=== PATIENT | male | born 1945 | race Caucasian/White ===

== ENCOUNTER 2017-10-08 11:52 | Inpatient (IN) | payer MEDICARE, OTHER, SELFPAY ==
[2017-10-08] VITALS (12 sets, daily range): BP systolic 113–149; BP diastolic 47–62; PULSE 56–75; RESP 14–24; TEMP 36.6–36.8; O2SAT 92–97; BMI 26.4; BMI 25.7; BMI 25.8
--- NOTE | 2017-10-08 12:07 | RAD_ITS ---
STUDY: X-RAY CHEST REASON FOR EXAM: Male, 72 years old. Chest pain x2 days. TECHNIQUE: Single portable frontal chest. COMPARISON: 2 views of the chest dated July 17, 2015. FINDINGS: The lungs are clear and expanded. There is no pleural effusion. There is no pneumothorax. Normal size heart. Calcified hilar and mediastinal lymph nodes appear stable. Normal visualized pulmonary arteries. There is atherosclerotic calcification of the aortic arch with tortuosity. There are diffuse degenerative changes of the visualized thoracic spine. Normal visualized ribs, clavicles, and shoulders. There is no demonstrated abnormality of the visualized soft tissue structures of the upper abdomen. RAD/Chest 1 View (Portable) IMPRESSION: Stable exam without evident acute cardiopulmonary disease. Electronically Signed: Yayo Munoz MD at 13:31 EDT , Service support ,
--- NOTE | 2017-10-08 12:07 | EKG12_ITS ---
Test Reason : AM Blood Pressure : / mmHG Vent. Rate : 067 BPM Atrial Rate : 067 BPM P-R Int : 164 ms QRS Dur : 138 ms QT Int : 416 ms P-R-T Axes : 054 023 029 degrees QTc Int : 439 ms Sinus rhythm with occasional Premature ventricular complexes Right bundle branch block Abnormal ECG When compared with ECG of 08-OCT-2017 11:52, MANUAL COMPARISON REQUIRED, DATA IS UNCONFIRMED Confirmed by AILEEN UP, SONAL ([id number]), index editor SOILA STREETER ([id number]) on 10/10/2017 1:21:49 PM Referred By: SALOME Confirmed By:SONAL GALLAGHER MD
[2017-10-08 12:22] LABS: Absolute Lymphocyte Count 2.17 X10^3/ul (0.83-4.51); Absolute Neutrophil Count 3.1 X10^3/uL (2.0-7.7); Basophil# 0.03 X10^3/uL; Basophil% 0.5 % (0-1); Eosinophil# 0.15 X10^3/uL; Eosinophils% 2.5 % (0-5); Hematocrit 44.6 % (40-54); Hemoglobin 15.1 g/dl (13.0-16.5); Lymphocyte # 2.17 X10^3/ul (4.0); Mean Corp Hgb Conc 33.9 g/gl (32-36); Mean Corpuscular Volume 91.6 fL (80-94); Mean Platelet Vol. 9.7 fl (6.2-12.0); Monocyte# 0.58 X10^3/uL; Monocyte% 9.6 % (0-10); Neutrophil # 3.09 X10^3/uL (2.7-7.7); Neutrophil % 51.2 % (47-70); POSITIVE COUNT NO; POSITIVE DIFFERENTIAL NO; POSITIVE MORPHOLOGY NO; Platelet Count 217 K/mm3 (150-450); RBC Distribution Width CV 12.6 % (11.6-14.6); RBC Distribution Width SD 41.5 fl (35.1-43.9); Red Blood Count 4.87 M/mm3 (4.6-6.2)
[2017-10-08] MEDS: 0.9% Normal Saline 1,000 ML 150 ML IV (12:33)
[2017-10-08] MEDS: Aspirin 81 MG TAB.CHEW 324 MG PO (12:33)
[2017-10-08 12:40] LABS: Anion Gap 6 (5-15); BUN 16 mg/dL (7-18); BUN/Creat Ratio 15.8 RATIO (10-20); Calcium,Total 9.3 mg/dL (8.5-10.1); Chloride 101 mmol/L (98-107); Creatinine, Serum 1.01 mg/dL (0.70-1.30); EST Glomerular Filtration Rate 77 mL/min (>60); Est Glom Filt Rate - Afr Amer 93 mL/min (>60); Estimated Creatinine Clearance 64.17 ml/min; Glucose 109 mg/dL (74-106); Sodium Level 139 mmol/L (136-145)
--- NOTE | 2017-10-08 12:47 | ED.VISSUMM ---
- ER Visit Summary Date of Service: 10/08/17 Chief Complaint: Chest pain] History of Present Illness: The patient is a 72 M [presents the emergency department with chest pain ?2 weeks. Patient describes a pressure and tightness in the retrosternal area especially with activity. Patient states that he has been walking daily with his and typically the discomfort is brought on by activity and seems to resolve with rest. Patient does describe some dyspnea. Patient describes some discomfort in the both arms. Patient thinks his last stress test was a few years ago. Patient has a history of hypertension, high cholesterol, asthma, Venecia's thyroiditis. Patient denies recent travel or surgery] Physical Examination: HEENT-PERRLA, EOMI. Cranial nerves II through XII grossly intact. TMs clear. Mucous membranes moist. No adenopathy. Cardiovascular-regular rate and rhythm without murmur or ectopy Lungs-clear to auscultation, chest wall stable without crepitus or subcu emphysema Abdomen-normoactive bowel sounds, soft, nontender, no rebound or rigidity, no peritoneal signs. Extremities-intact ?4, normal range of motion, normal pulses, atraumatic] Test Results: [EKG obtained arrival shows sinus rhythm with rate of 72 bpm with right bundle branch block. CBC with it was normal. Chemistries were normal. Troponin was less than 0.02. Chest x-ray showed nothing acute.] Emergency Department Course and Treatment: [Received aspirin in the emergency department. Discussed case with Dr. Sebastien Stallings who is on-call for cardiology who asked that we admit to hospitalist for cardiac rule out including stress test] Treatment Plan: [Admit] Disposition: [Admit] Impression: [Chest pain-rule out acute coronary syndrome] This note was generated with [employer] dictation software. It may contain incorrect words, spelling, and punctuation that were not noted in review of the chart prior to signing ED Disposition - Plan for ED Patient: Chief Complaint: Chest Pain Referrals: Álvaro Purcell DO [Primary Care Provider] -
--- NOTE | 2017-10-08 13:01 | PCM.HP.STD ---
Problem List (1) HTN (hypertension) Status: Chronic Qualifiers: Hypertension type: essential hypertension Qualified Code(s): I10 - Essential (primary) hypertension (2) HLD (hyperlipidemia) Status: Chronic Qualifiers: Hyperlipidemia type: unspecified Qualified Code(s): E78.5 - Hyperlipidemia, unspecified (3) Asthma Status: Chronic Qualifiers: Asthma severity: mild Asthma persistence: unspecified Asthma complication type: uncomplicated Qualified Code(s): J45.909 - Unspecified asthma, uncomplicated (4) History of Venecia thyroiditis Status: Chronic (5) Allergic rhinitis Status: Chronic Qualifiers: Allergic rhinitis trigger: unspecified Allergic rhinitis seasonality: unspecified seasonality Qualified Code(s): J30.9 - Allergic rhinitis, unspecified (6) Chest pain Status: Acute Qualifiers: Chest pain type: unspecified Qualified Code(s): R07.9 - Chest pain, unspecified (7) Dyspnea on exertion Status: Acute History of Present Illness Date of Admission: 10/08/17 Chief Complaint: Chest pain The patient is a 72 y/o M w/ PMHx: HTN, HLD, Asthma, Hx of Venecia Thyroiditis who presents to the [facility] ED on 10/08/17 with history of intermittent substernal chest pressure and tightness with associated dyspnea with radiation to bilateral upper extremities primarily with activity with onset starting approximately 2 weeks prior. He normally walks at least 1 mile daily with his and notes that this started intermittently when he was exerting himself. He also notes the day prior to current presentation he was digging a ditch and it reoccurred. This sensation has become more severe but remains intermittent. In the ED work-up included AF, HR 60-70, BP 125/59, RR 19, 94% on RA, unremarkable CBC, unremarkable BMP aside glucose 109, trop < 0.02, CXR without acute process, EKG w/ chronic unchanged RBBB. In the ED patient administered NS, ASA. Cardiology, Dr. Stallings consulted per ED physician. Past Medical History Past Medical History (Chronic Problems): Chronic Problems HTN (hypertension) (Chronic) HLD (hyperlipidemia) (Chronic) Asthma (Chronic) History of Venecia thyroiditis (Chronic) Allergic rhinitis (Chronic) Allergies latex Allergy (Verified 10/08/17 12:06) Hives codeine Adverse Reaction (Verified 10/08/17 12:06) Nausea Home Medications: Ambulatory Orders Medication Instructions Recorded Albuterol Inhaler [Ventolin Hfa 1 - 2 puff INHALATION Q6H PRN PRN 10/08/17 (SP)] Budesonide Inhaler 90 mcg 2 puff INHALATION BID PRN 10/08/17 [Pulmicort Flexhaler 90 mcg] Cholecalciferol (Vitamin D3) 4,000 unit PO DAILY 10/08/17 [Vitamin D3] Fexofenadine HCl 180 mg PO DAILY 10/08/17 Fish Oil/Dha/Epa [Fish Oil 1,200 1 each PO DAILY 10/08/17 mg Fish Oil] Gluc/Evans-MSM#1/C/Abrahan/Gabe/Bor 1 each PO DAILY 10/08/17 [Glucosamine-Chondroitin Caplet] Hydrochlorothiazide 25 mg PO DAILY 10/08/17 Levothyroxine [Synthroid] 137 mcg PO DAILY 10/08/17 Nabumetone [Relafen] 500 mg PO DAILY 10/08/17 Triamterene/Hydrochlorothiazid 1 each PO DAILY 10/08/17 [Triamterene-Hctz 37.5-25 mg Tb] Surgical History: - - Bilateral inguinal hernia repair and arthroscopic knee surgery. Psychiatric History: No pertinent psych hx Lives: Spouse/ Significant Other Smoking Status: Former smoker - Quit approximately 25 years prior with a [id number] history of cigarette tobacco. Tobacco Use: Non-smoker Alcohol: Occasional Drugs: None - *Family History Maternal History Items: - - Mother with a history of heart disease, ND, stroke noted to have had a initial event in her 70s. Paternal History Items: - - Father with a history of heart disease, ND, stroke with initial event at age 65. Sibling History Items: - - Patient sister with a history of ND, heart disease with initial event at age 65. Review of Systems Constitutional: Denies: Chills, Fever, Weight Change HEENT: Denies: Head Aches, Sinus Congestion, Sinus Drainage Cardiovascular: Reports: Chest Pain, Chest Pressure, Chest Tightness. Denies: Edema, Heaviness, Light Headedness, Orthopnea, Palpitations, Syncope Respiratory: Reports: Shortness of Breath, Shortness of breath upon exertion. Denies: Cough, Shortness of breath at rest, Sputum production Gastrointestinal: Denies: Abdominal Pain, Nausea, Vomiting Genitourinary: Denies: Dysuria Musculoskeletal: Denies: Joint Pain, Joint Tenderness Skin: Denies: Rash, Wounds Neurological: Denies: Numbness, Tingling, Focal weakness Psychiatric: Denies: Anxiety, Depression, Homicidal Ideations, Suicidal Ideations Hematologic/ Lymphatic: Denies: Easy Bruising, Easy Bleeding VTE Information - Inpt Only VTE Present on Admission: No VTE Mechan Device Prophylaxis: SCD's VTE Pharm Prophylaxis ordered?: Yes Patient Problems: Active and Suspected Problems Chest pain (Acute) Dyspnea on exertion (Acute) Hypercholesterolemia (Acute) Subjective: Seated upright in the bed, no acute distress, no current chest discomfort. Objective: Physical Examination: General: awake, alert, oriented x 3 and cooperative, seated upright in bed in no apparent distress. Skin: normal color, turgor, no icterus, cyanosis. HEENT: AT/NC, EOMI, PERRLA, MMM, no carotid bruits or JVD noted. Lungs: Diminished breath sounds throughout, greater bilateral bases, mild effort, no rales, ronchi or wheezing. Heart: Regular rate and rhythm; no gallop, rub audible. Abdomen: soft, NTTP, ND, normal BS, no HSM. Extremities: no cyanosis, clubbing, or edema. Neurological: patient awake, alert, oriented x 3; cognitive function intact; pupils equally reactive to light and accomodation; cranial nerves II-XII grossly normal, moving all 4 extremities, no focal deficits, strength preserved. Psychiatric: affect appears normal, no acute evidence of depressive or anxiety feelings. - Physical Exam Vital Signs Temp Pulse Resp BP Pulse Ox 97.9 F 75 19 H 125/59 H 94 10/08/17 11:53 10/08/17 12:41 10/08/17 12:41 10/08/17 12:41 10/08/17 12:41 Oxygen Delivery Method Room Air Weight: 179 lb 7.3 oz Body Mass Index (BMI) 26.4 Laboratory Tests Past 24 Hrs 10/08/17 10/08/17 12:10 12:10 WBC 6.0 RBC 4.87 Hgb 15.1 Hct 44.6 MCV 91.6 MCH 31.0 MCHC 33.9 RDW 12.6 RDW Differential 41.5 Plt Count 217 MPV 9.7 Immature Gran % (Auto) 0.200 Neut % (Auto) 51.2 Lymph % (Auto) 36.0 [place] % (Auto) 9.6 Eos % (Auto) 2.5 Baso % (Auto) 0.5 Absolute Neuts (auto) 3.1 Absolute Lymphs (auto) 2.17 Total Counted Not Reportable Sodium 139 Potassium 4.0 Chloride 101 Carbon Dioxide 32.0 Anion Gap 6 BUN 16 Creatinine 1.01 Estim Creat Clear Calc 64.17 Est GFR (MDRD) Af Amer 93 Est GFR (MDRD) Non-Af 77 BUN/Creatinine Ratio 15.8 Glucose 109 H Calcium 9.3 Troponin I < 0.02 Assessment/Plan Active and Suspected Problems Chest pain (Acute) Dyspnea on exertion (Acute) Hypercholesterolemia (Acute) The patient is a 72 y/o M w/ PMHx: HTN, HLD, Asthma, Hx of Venecia Thyroiditis who presents to the [facility] ED on 10/08/17 with history of intermittent substernal chest pressure and tightness with associated dyspnea with radiation to bilateral upper extremities primarily with activity with onset starting approximately 2 weeks prior. He normally walks at least 1 mile daily with his and notes that this started intermittently when he was exerting himself. (1) Chest Pain: In the ED work-up included AF, HR 60-70, BP 125/59, RR 19, 94% on RA, unremarkable CBC, unremarkable BMP aside glucose 109, trop < 0.02, CXR without acute process, EKG w/ chronic unchanged RBBB. In the ED patient administered NS, ASA. Cardiology, Dr. Stallings consulted per ED physician. Will admit to PCU, place on a monitored bed to assure no acute myocardial infarction with serial cardiac enzymes and EKGs. Per Dr. Stallings request will obtain ECHO w. contrast. Additionally, if cardiac enzyme series remain unremarkable will obtain AM Treadmill Stress ECHO. ASA, NG, morphine. FLP in AM. Mag pending. (2) Asthma, Mild: PRN albuterol, HOB, IS parameters. (3) Hypertension: Continue home regimen including triamterene, hydrochlorothiazide, PRN hydralazine. (4) Hyperlipidemia: Will obtain FLP in AM, does have statin intolerance. (5) Hx of Venecia Thyroiditis: Maintain on home synthroid regimen, TSH and FT4 pending. (6) Former Tobacco use: Encourage continued cessation. (7) DVT Prophylaxis: SCDs, lovenox. Code Visit OBSV E&M: 66905 Initial observation care L3
--- NOTE | 2017-10-08 13:10 | HP.PCM_ITS ---
Problem List (1) HTN (hypertension) Status: Chronic Qualifiers: Hypertension type: essential hypertension Qualified Code(s): I10 - Essential (primary) hypertension (2) HLD (hyperlipidemia) Status: Chronic Qualifiers: Hyperlipidemia type: unspecified Qualified Code(s): E78.5 - Hyperlipidemia , unspecified (3) Asthma Status: Chronic Qualifiers: Asthma severity: mild Asthma persistence: unspecified Asthma complication type: uncomplicated Qualified Code(s): J45.909 - Unspecified asthma, uncomplicated (4) History of Venecia thyroiditis Status: Chronic (5) Allergic rhinitis Status: Chronic Qualifiers: Allergic rhinitis trigger: unspecified Allergic rhinitis seasonality: unspecified seasonality Qualified Code(s): J30.9 - Allergic rhinitis, unspecified (6) Chest pain Status: Acute Qualifiers: Chest pain type: unspecified Qualified Code(s): R07.9 - Chest pain, unspecified (7) Dyspnea on exertion Status: Acute History of Present Illness Date of Admission: 10/08/17 Chief Complaint: Chest pain The patient is a 72 y/o M w/ PMHx: HTN, HLD, Asthma, Hx of Venecia Thyroiditis who presents to the [facility] ED on 10/08/17 with history of intermittent substernal chest pressure and tightness with associated dyspnea with radiation to bilateral upper extremities primarily with activity with onset starting approximately 2 weeks prior. He normally walks at least 1 mile daily with his and notes that this started intermittently when he was exerting himself. He also notes the day prior to current presentation he was digging a ditch and it reoccurred. This sensation has become more severe but remains intermittent. In the ED work-up included AF, HR 60-70, BP 125/59, RR 19, 94% on RA, unremarkable CBC, unremarkable BMP aside glucose 109, trop < 0.02, CXR without acute process, EKG w/ chronic unchanged RBBB. In the ED patient administered NS , ASA. Cardiology, Dr. Stallings consulted per ED physician. Past Medical History Past Medical History (Chronic Problems): Chronic Problems HTN (hypertension) (Chronic) HLD (hyperlipidemia) (Chronic) Asthma (Chronic) History of Venecia thyroiditis (Chronic) Allergic rhinitis (Chronic) Allergies latex Allergy (Verified 10/08/17 12:06) Hives codeine Adverse Reaction (Verified 10/08/17 12:06) Nausea Home Medications: Ambulatory Orders Medication Instructions Recorded Albuterol Inhaler [Ventolin Hfa 1 - 2 puff INHALATION Q6H PRN PRN 10/08/17 (SP)] Budesonide Inhaler 90 mcg 2 puff INHALATION BID PRN 10/08/17 [Pulmicort Flexhaler 90 mcg] Cholecalciferol (Vitamin D3) 4,000 unit PO DAILY 10/08/17 [Vitamin D3] Fexofenadine HCl 180 mg PO DAILY 10/08/17 Fish Oil/Dha/Epa [Fish Oil 1,200 1 each PO DAILY 10/08/17 mg Fish Oil] Gluc/Evans-MSM#1/C/Abrahan/Gabe/Bor 1 each PO DAILY 10/08/17 [Glucosamine-Chondroitin Caplet] Hydrochlorothiazide 25 mg PO DAILY 10/08/17 Levothyroxine [Synthroid] 137 mcg PO DAILY 10/08/17 Nabumetone [Relafen] 500 mg PO DAILY 10/08/17 Triamterene/Hydrochlorothiazid 1 each PO DAILY 10/08/17 [Triamterene-Hctz 37.5-25 mg Tb] Surgical History: - - Bilateral inguinal hernia repair and arthroscopic knee surgery. Psychiatric History: No pertinent psych hx Lives: Spouse/ Significant Other Smoking Status: Former smoker - Quit approximately 25 years prior with a 25-pack -year history of cigarette tobacco. Tobacco Use: Non-smoker Alcohol: Occasional Drugs: None - *Family History Maternal History Items: - - Mother with a history of heart disease, MA, stroke noted to have had a initial event in her 70s. Paternal History Items: - - Father with a history of heart disease, MA, stroke with initial event at age 65. Sibling History Items: - - Patient sister with a history of MA, heart disease with initial event at age 65. Review of Systems Constitutional: Denies: Chills, Fever, Weight Change HEENT: Denies: Head Aches, Sinus Congestion, Sinus Drainage Cardiovascular: Reports: Chest Pain, Chest Pressure, Chest Tightness. Denies: Edema, Heaviness, Light Headedness, Orthopnea, Palpitations, Syncope Respiratory: Reports: Shortness of Breath, Shortness of breath upon exertion. Denies: Cough, Shortness of breath at rest, Sputum production Gastrointestinal: Denies: Abdominal Pain, Nausea, Vomiting Genitourinary: Denies: Dysuria Musculoskeletal: Denies: Joint Pain, Joint Tenderness Skin: Denies: Rash, Wounds Neurological: Denies: Numbness, Tingling, Focal weakness Psychiatric: Denies: Anxiety, Depression, Homicidal Ideations, Suicidal Ideations Hematologic/ Lymphatic: Denies: Easy Bruising, Easy Bleeding VTE Information - Inpt Only VTE Present on Admission: No VTE Mechan Device Prophylaxis: SCD's VTE Pharm Prophylaxis ordered?: Yes Patient Problems: Active and Suspected Problems Chest pain (Acute) Dyspnea on exertion (Acute) Hypercholesterolemia (Acute) Subjective: Seated upright in the bed, no acute distress, no current chest discomfort. Objective: Physical Examination: General: awake, alert, oriented x 3 and cooperative, seated upright in bed in no apparent distress. Skin: normal color, turgor, no icterus, cyanosis. HEENT: AT/NC, EOMI, PERRLA, MMM, no carotid bruits or JVD noted. Lungs: Diminished breath sounds throughout, greater bilateral bases, mild effort , no rales, ronchi or wheezing. Heart: Regular rate and rhythm; no gallop, rub audible. Abdomen: soft, NTTP, ND, normal BS, no HSM. Extremities: no cyanosis, clubbing, or edema. Neurological: patient awake, alert, oriented x 3; cognitive function intact; pupils equally reactive to light and accomodation; cranial nerves II-XII grossly normal, moving all 4 extremities, no focal deficits, strength preserved. Psychiatric: affect appears normal, no acute evidence of depressive or anxiety feelings. - Physical Exam Vital Signs Temp Pulse Resp BP Pulse Ox 97.9 F 75 19 H 125/59 H 94 10/08/17 11:53 10/08/17 12:41 10/08/17 12:41 10/08/17 12:41 10/08/17 12:41 Oxygen Delivery Method Room Air Weight: 179 lb 7.3 oz Body Mass Index (BMI) 26.4 Laboratory Tests Past 24 Hrs 10/08/17 10/08/17 12:10 12:10 WBC 6.0 RBC 4.87 Hgb 15.1 Hct 44.6 MCV 91.6 MCH 31.0 MCHC 33.9 RDW 12.6 RDW Differential 41.5 Plt Count 217 MPV 9.7 Immature Gran % (Auto) 0.200 Neut % (Auto) 51.2 Lymph % (Auto) 36.0 [place] % (Auto) 9.6 Eos % (Auto) 2.5 Baso % (Auto) 0.5 Absolute Neuts (auto) 3.1 Absolute Lymphs (auto) 2.17 Total Counted Not Reportable Sodium 139 Potassium 4.0 Chloride 101 Carbon Dioxide 32.0 Anion Gap 6 BUN 16 Creatinine 1.01 Estim Creat Clear Calc 64.17 Est GFR (MDRD) Af Amer 93 Est GFR (MDRD) Non-Af 77 BUN/Creatinine Ratio 15.8 Glucose 109 H Calcium 9.3 Troponin I < 0.02 Assessment/Plan Active and Suspected Problems Chest pain (Acute) Dyspnea on exertion (Acute) Hypercholesterolemia (Acute) The patient is a 72 y/o M w/ PMHx: HTN, HLD, Asthma, Hx of Venecai Thyroiditis who presents to the [facility] ED on 10/08/17 with history of intermittent substernal chest pressure and tightness with associated dyspnea with radiation to bilateral upper extremities primarily with activity with onset starting approximately 2 weeks prior. He normally walks at least 1 mile daily with his and notes that this started intermittently when he was exerting himself. (1) Chest Pain: In the ED work-up included AF, HR 60-70, BP 125/59, RR 19, 94% on RA, unremarkable CBC, unremarkable BMP aside glucose 109, trop < 0.02, CXR without acute process, EKG w/ chronic unchanged RBBB. In the ED patient administered NS, ASA. Cardiology, Dr. Stallings consulted per ED physician. Will admit to PCU, place on a monitored bed to assure no acute myocardial infarction with serial cardiac enzymes and EKGs. Per Dr. Stallings request will obtain ECHO w. contrast. Additionally, if cardiac enzyme series remain unremarkable will obtain AM Treadmill Stress ECHO. ASA, NG, morphine. FLP in AM. Mag pending. (2) Asthma, Mild: PRN albuterol, HOB, IS parameters. (3) Hypertension: Continue home regimen including triamterene, hydrochlorothiazide, PRN hydralazine. (4) Hyperlipidemia: Will obtain FLP in AM, does have statin intolerance. (5) Hx of Venecia Thyroiditis: Maintain on home synthroid regimen, TSH and FT4 pending. (6) Former Tobacco use: Encourage continued cessation. (7) DVT Prophylaxis: SCDs, lovenox. Code Visit OBSV E&M: 93602 Initial observation care L3
--- NOTE | 2017-10-08 14:00 | NURSING ---
IN PCU 121 per cart from ER
--- NOTE | 2017-10-08 14:01 | CON.PCM_ITS ---
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 Patient states that he has a family history in his sister who had a myocardial infarction at age 65. Patient is fairly active at home, working on his large yard, and is noted progressively worsening exertional chest pressure localized in the mid chest radiating down both of his arms, relieved with rest over the last 2 weeks. He had a significant episode yesterday, informing his about it, but did not seek medical attention. The patient went for a walk today with his inhaler, and he had no exertional chest pain. Patient states that he probably could walk 2 blocks on a flat surface but could not walk 2 flights of stairs due to shortness of breath and dyspnea. Patient does sleep in an a reclining position mostly for comfort and not for orthopnea or PND. Patient had an exercise stress test in 2012 without imaging which was negative for inducible ischemia after 6 minutes, did have a hypertensive blood pressure response to exercise. In addition he had an echocardiogram in 2012 which showed intact LV function, unable to quantitate RVSP. The patient denies any recent viral illnesses, long travel, or sedentary situations. Patient's EKG in the ER showed normal sinus rhythm with old right bundle branch block, no acute changes. First troponin is negative. [] Past Medical History Allergies/Adverse Reactions: Allergies latex Allergy (Verified 10/08/17 12:06) Hives codeine Adverse Reaction (Verified 10/08/17 12:06) Nausea Home Medications: Ambulatory Orders Medication Instructions Recorded Albuterol Inhaler [Ventolin Hfa 1 - 2 puff INHALATION Q6H PRN PRN 10/08/17 (SP)] Budesonide Inhaler 90 mcg 2 puff INHALATION BID PRN 10/08/17 [Pulmicort Flexhaler 90 mcg] Cholecalciferol (Vitamin D3) 4,000 unit PO DAILY 10/08/17 [Vitamin D3] Fexofenadine HCl 180 mg PO DAILY 10/08/17 Fish Oil/Dha/Epa [Fish Oil 1,200 1 each PO DAILY 10/08/17 mg Fish Oil] Gluc/Evans-MSM#1/C/Abrahan/Gabe/Bor 1 each PO DAILY 10/08/17 [Glucosamine-Chondroitin Caplet] Hydrochlorothiazide 25 mg PO DAILY 10/08/17 Levothyroxine [Synthroid] 137 mcg PO DAILY 10/08/17 Nabumetone [Relafen] 500 mg PO DAILY 10/08/17 Triamterene/Hydrochlorothiazid 1 each PO DAILY 10/08/17 [Triamterene-Hctz 37.5-25 mg Tb] Smoking Status: Former smoker Review of Systems - Review of Systems General: Denies: Fever, Night Sweats, Fatigue Cardiovascular: Reports: Chest Discomfort, Chest Discomfort with Exertion, Chest Tightness, Chest Heaviness, Shortness of Breath, Shortness of Breath with Exertion. Denies: Orthopnea, PND, Peripheral Edema, Palpitations, Lightheadedness, Dizziness, Near Syncope, Syncope Respiratory: Denies: Cough, Sputum Production, Hemoptysis Gastrointestinal: Denies: Hematemesis, Hematochezia, Melena Genitourinary: Denies: Dysuria, Hematuria Skin: Denies: Rash Subjectve: Patient laying in bed, no acute distress. Objective: Vital Signs Temp Pulse Resp BP Pulse Ox 97.9 F 65 22 H 131/62 H 93 10/08/17 11:53 10/08/17 13:29 10/08/17 13:29 10/08/17 13:29 10/08/17 13:29 Oxygen Delivery Method Room Air Rhythm: EKG: As above ECHO: Pending Stress Test: Pending Cardiac Cath: PCI: CT Surgery: Holter monitor: EPS: PPM: CXR: Chest CT Scan: Assessment/Plan 1. Exertional chest pressure: Patient has had progressively worsening exertional chest pressure over the last 2 weeks, radiating down both arms, with associated shortness of breath and dyspnea on exertion. The patient's risk factors of age, hypertension, hypercholesterolemia, and the fact that he had a younger sister developed coronary disease, I recommend that he be admitted and ruled out for myocardial infarction. Recommend continuing baby aspirin, subcu Lovenox per protocol, and rule out for myocardial infarction with troponins ?3 sets. If his troponins are at all abnormal, I have a low threshold for diagnostic coronary angiogram. If his troponins are negative ?3, I recommend that he undergo a treadmill echocardiogram to determine if he has any exertional anginal symptoms, blood pressure response to exercise, and evaluate for coronary ischemia. If his stress test is abnormal he will require diagnostic coronary angiogram. In addition I recommended he undergo a 2D echo with Doppler to document his LV function, pulmonary pressures and valvular function. If the patient's above cardiac workup is negative, I would refer him to pulmonary for possible PFTs given his history of smoking and exposure to laquer chemicals. 2. Hypercholesterolemia: Recommend obtaining a fasting lipid profile, and treating the patient with either gemfibrozil or Niaspan as he is unable to tolerate statins. 3. Thank you very much for the opportunity to participate in the cardiac care of your patient. Consultation time took place between 130 and 2 PM. Code Visit Inpatient E&M: 14641 Init Hosp L2
--- NOTE | 2017-10-08 14:26 | ECHOCS_ITS ---
Reason For Study: CHEST PAIN Procedure This was a 2D Doppler, Color Flow transthoracic echocardiogram. The study was technically difficult. Contrast injection was performed. Exam performed portable in patient room. Left Ventricle Normal size and thickness. The estimated ejection fraction is 65 %. Stage 1 diastolic dysfunction. No regional wall motion abnormalities noted. Right Ventricle Normal size and thickness. Normal systolic function. Atria Normal left atrium. Normal right atrium. Normal atrial septum. Mitral Valve The mitral valve is structurally normal. No prolapse or stenosis seen. Tricuspid Valve Normal tricuspid valve. Unable to estimate RV systolic pressure/pulmonary artery pressure due to technically difficult study. Aortic Valve Normal aortic valve. Trisinus/trileaflet aortic valve. Pulmonic Valve Normal pulmonic valve. Great Vessels Normal aortic root. Normal arch. Normal inferior vena cava. Inferior vena cava collapse with sniff. Pericardium/Pleural No pericardial effusion. Medication Diluted definity 2.0ml given slow IV push to enhance endocardial definition. MMode/2D Measurements & Calculations LVIDd: 4.4 cm IVSd: 1.0 cm Ao root diam: 3.7 cm LVIDs: 2.4 cm LVPWd: 1.0 cm LA dimension: 4.4 cm RVDd: 3.0 cm FS: 44.7 % LAV(MOD-bp): 60.5 ml LA A4 area: 18.5 cm2 RA A4 area: 13.5 cm2 LAV(MOD-bp) Indexed: 30.7 ml/m2 LAV(MOD-sp2): 69.4 ml LAV(MOD-sp4): 52.2 ml Doppler Measurements & Calculations MV E max chris: 62.8 cm/sec Lat Peak E' Chris: 11.3 cm/sec Med Peak E' Chris: 9.0 cm/sec MV A max chris: 79.3 cm/sec E/E' lat: 5.6 E/E' med: 7.0 MV E/A: 0.79 Ao V2 max: 142.7 cm/sec LV V1 max: 124.0 cm/sec PA V2 max: 100.9 cm/sec Ao max P.2 mmHg LV V1 max P.2 mmHg Interpretation Summary The estimated ejection fraction is 65 %. Stage 1 diastolic dysfunction. Unable to estimate RV systolic pressure/pulmonary artery pressure due to technically difficult study. The study was technically difficult. Contrast injection was performed. There is no comparison study available. Ordering Physician: Sebastien Stallings Performed By: Mary Nagel RDCS, RVT
[2017-10-08 15:42] LABS: T4 Free Direct 1.22 ng/dL (0.76-1.46); Thyroid Stim Hormone (TSH) 0.83 uIU/mL (0.358-3.74)
[2017-10-08] MEDS: Famotidine 20 MG Tablet PO (21:13)
[2017-10-08] MEDS: Enoxaparin 40 MG/0.4 ML Syringe SC (21:14)
[2017-10-08] MEDS: 0.9% Normal Saline 1,000 ML 100 ML IV (23:16)
[2017-10-09] VITALS (13 sets, daily range): BP systolic 121–137; BP diastolic 63–71; PULSE 56–73; RESP 16; TEMP 36.8–37.3; O2SAT 94
[2017-10-09 02:12] LABS: Hemoglobin 14.1 g/dl (13.0-16.5); Mean Corp Hgb Conc 34.4 g/gl (32-36); Mean Corpuscular Hgb 31.3 pg (27.0-32.0); Mean Corpuscular Volume 90.9 fL (80-94); Platelet Count 201 K/mm3 (150-450); RBC Distribution Width CV 12.7 % (11.6-14.6); RBC Distribution Width SD 41.1 fl (35.1-43.9); Red Blood Count 4.51 M/mm3 (4.6-6.2); White Blood Count 6.2 K/mm3 (4.4-11.0)
[2017-10-09 02:13] LABS: Scan Indicated on CBC? Y/N NO
[2017-10-09 02:16] LABS: International Normalized Ratio 1.1; Prothrombin Time (Protime)PT. 14.5 SECONDS (11.7-14.9)
[2017-10-09 02:17] LABS: Partial Thromboplast Time 37.1 Seconds (24.1-36.2)
[2017-10-09 02:28] LABS: Anion Gap 7 (5-15); BUN 17 mg/dL (7-18); BUN/Creat Ratio 20.3 RATIO (10-20); Calcium,Total 8.6 mg/dL (8.5-10.1); Chloride 108 mmol/L (98-107); Cholesterol 229 mg/dL (200); Creatinine, Serum 0.84 mg/dL (0.70-1.30); EST Glomerular Filtration Rate 95 mL/min (>60); Est Glom Filt Rate - Afr Amer 115 mL/min (>60); Estimated Creatinine Clearance 77.15 ml/min; Glucose 101 mg/dL (74-106); High Density Lipoprotein 43 mg/dL; Potassium 3.5 mmol/L (3.5-5.1); Sodium Level 142 mmol/L (136-145); Triglycerides 69 mg/dL; Very Low Density Lipoprotein 14 mg/dL (5-40)
[2017-10-09] MEDS: Aspirin E.C. 81 MG Tablet PO (05:36)
[2017-10-09] MEDS: Levothyroxine 137 MCG Tablet PO (05:36)
[2017-10-09] MEDS: 0.9% NaCl Peripheral Flush Adult/Peds IV (05:37)
--- NOTE | 2017-10-09 05:55 | EKG12_ITS ---
Test Reason : AMEKG Blood Pressure : / mmHG Vent. Rate : 060 BPM Atrial Rate : 060 BPM P-R Int : 152 ms QRS Dur : 142 ms QT Int : 422 ms P-R-T Axes : 049 018 014 degrees QTc Int : 422 ms Normal sinus rhythm Right bundle branch block Abnormal ECG When compared with ECG of 09-OCT-2017 04:29, MANUAL COMPARISON REQUIRED, DATA IS UNCONFIRMED Confirmed by DENICE CHILD ([id number]), assistant production editor [employer] STREETER ([id number]) on 10/15/2017 8:52:13 AM Referred By: SALOME Confirmed By:DENICE CHILD
--- NOTE | 2017-10-09 08:00 | STEWCON_ITS ---
Reason For Study: Chest Pain Stress Results Protocol: Stress Echocardiogram Maximum Predicted HR: 146 bpm Target HR: 124 bpm% Maximum Pr edicted HR: 91 % DurationHeart Rate Stage (mm:ss) (bpm) BPCom ment BASELINE 64 122/70 DEFINITY DILUTED 4 ML USED DURING STRESS MILTON PROTOCOL- STAGE 1 3:00 10 7 124/68 MILTON PROTOCOL- STAGE 2 3:00 13 3 130/70 RECOVERY 75 154/84 Stress Duration: 6:00 mm:ss Maximum Stress HR: 133 bpm Baseline Echocardiogram Findings The estimated ejection fraction is 65 %. Stress Echo Wall motion Data Resting WMIntermediate WMStress WM Resting Wall Motion Wall Motion Stress No regional wall motion Basal anteroseptal: Severely abnormalities noted. Hypokinetic. Mid-Anterior : Severely Hypokinetic. Anterior [place] : Severly Hypokinetic. EKG Data The baseline ECG demonstrates normal sinus rhythm with at rate of _ beats per minute. The patient exercised according to the regular [place] protocol for a total duration of 6:03. The maximum heart rate attained was 133 beats per minute. This was 91% of maximum predicted heart rate. The patient exercised into stage 3 of the [place] protocol. The stress ECG displays diffuse abnormal ST segments. Interpretation Summary The estimated ejection fraction is 65 %. Basal anteroseptal: Severely Hypokinetic. Mid-Anterior : Severely Hypokinetic. Anterior [place] : Severly Hypokinetic. Abnormal, adequate, treadmill echocardiogram. Positive for ischemia by EKG and echocardiographic criteria. Patient developed fatigue, bilateral arm pain at peak exercise. Patient had around [address] segment depression at peak exercise, superimposed on baseline right bundle branch block. Rare PVCs during exercise and into recovery. Patient developed significant anterior apical hypokinesis at peak exercise. EKG symptoms EKG normalized and symptoms resolved during recovery. Average exercise capacity for age. Appropriate blood pressure response to exercise. Final LVEF of 35%. Ordering Physician: Sebastien Stallings Referring Physician: Álvaro Luciano Performed By: Mary Nagel, RUBI, RVT
--- NOTE | 2017-10-09 10:56 | PCM.PN.CARD ---
Subjectve: Patient underwent stress test this morning and 1 about 6 minutes, developed chest pain and bilateral arm pain, developed ST segment depression, and possible anteroapical hypokinesis. Symptoms resolved EKG normalized, patient was brought back to the floor. Her negative last night. Objective: Vital Signs Temp Pulse Resp BP Pulse Ox 99.1 F 64 16 135/65 H 94 10/09/17 08:00 10/09/17 08:00 10/09/17 08:00 10/09/17 08:00 10/09/17 08:00 Oxygen Delivery Method Room Air Weight: 174 lb 9.698 oz Body Mass Index (BMI) 25.7 Intake and Output for Last 24 Hours 10/07/17 10/08/17 10/09/17 23:59 23:59 23:59 Intake Total 1712 / 1712 696 / 696 Output Total 1700 / 1700 0 / 0 Balance 696 / 696 General: Awake, Alert, Oriented x 3 HEENT: PERRL, EOMI, Sclera Non Icteric Neck: Supple, Good ROM, No Lymph Node Enlargement Lungs: Clear to auscultation Cardiovascular: Regular Rhythm, Normal S1, Normal S2, No Murmurs, No Rubs, No Gallops Vascular: No Carotid Bruits, Normal Femoral Pulses, Normal Radial Pulses, Normal Dorsalis Pedal Pulse, Normal Posterior Tibial Pulses Abdomen: Bowel Sounds Present, Soft, Non Tender, No HSM, No Organomegaly Extremities: No Cyanosis, No Clubbing, No edema Neurological: No Focal Motor or Sensory Deficit 10/08/17 14:58: Magnesium 2.0, Troponin I < 0.02 10/08/17 20:41: Troponin I < 0.02 10/09/17 02:00: WBC 6.2, RBC 4.51 L, Hgb 14.1, Hct 41.0, MCV 90.9, MCH 31.3, MCHC 34.4, RDW 12.7, RDW Differential 41.1, Plt Count 201, MPV 10.0 10/09/17 02:00: Sodium 142, Potassium 3.5, Chloride 108 H, Carbon Dioxide 27.0, Anion Gap 7, BUN 17, Creatinine 0.84, Est GFR (MDRD) Af Amer 115, Est GFR (MDRD) Non-Af 95, BUN/Creatinine Ratio 20.3 H, Glucose 101, Calcium 8.6, Triglycerides 69, Cholesterol 229 H, LDL Cholesterol 172 H, VLDL Cholesterol 14, HDL Cholesterol 43 10/09/17 02:00: Troponin I < 0.02 10/09/17 02:00: PT 14.5, INR 1.1, APTT 37.1 H Rhythm: EKG: ECHO: Stress Test: Pulmonary abnormal for EKG and echocardiographic changes. Final report pending. Cardiac Cath: PCI: CT Surgery: Holter monitor: EPS: PPM: CXR: Chest CT Scan: Medical Necessity - Tobacco Use Smoking Status: Former smoker - Quit approximately 25 years prior with a [id number] history of cigarette tobacco. Tobacco Use: Non-smoker Assessment/Plan 1. Exertional chest pressure: Patient has had progressively worsening exertional chest pressure over the last 2 weeks, radiating down both arms, with associated shortness of breath and dyspnea on exertion. The patient's risk factors of age, hypertension, hypercholesterolemia, and the fact that he had a younger sister developed coronary disease, I recommend that he be admitted and ruled out for myocardial infarction. Recommend continuing baby aspirin, subcu Lovenox per protocol, and rule out for myocardial infarction with troponins ?3 sets. Troponins were negative ?3. Patient underwent treadmill echocardiogram this morning which was abnormal for chest pain, bilateral arm pain, ST segment depression, and possible old anterior and apical hypokinesis. Final results pending. At this point would recommend loading the patient with 300 mg of Plavix and starting him on 75 mg p.o. daily. Recommend he undergo heart catheterization tomorrow morning. I will discuss with the patient is later today the implications of his abnormal stress test and a catheterization going forward. In addition I recommended he undergo a 2D echo with Doppler to document his LV function, pulmonary pressures and valvular function. If the patient's above cardiac workup is negative, I would refer him to pulmonary for possible PFTs given his history of smoking and exposure to laquer chemicals. 2. Hypercholesterolemia: Recommend obtaining a fasting lipid profile, and treating the patient with either gemfibrozil or Niaspan as he is unable to tolerate statins. 3. Thank you very much for the opportunity to participate in the cardiac care of your patient. Code Visit Inpatient E&M: 71831 Subs Hosp L2
--- NOTE | 2017-10-09 11:04 | PN.CARD_ITS ---
Subjectve: Patient underwent stress test this morning and 1 about 6 minutes, developed chest pain and bilateral arm pain, developed ST segment depression, and possible anteroapical hypokinesis. Symptoms resolved EKG normalized, patient was brought back to the floor. Her negative last night. Objective: Vital Signs Temp Pulse Resp BP Pulse Ox 99.1 F 64 16 135/65 H 94 10/09/17 08:00 10/09/17 08:00 10/09/17 08:00 10/09/17 08:00 10/09/17 08:00 Oxygen Delivery Method Room Air Weight: 174 lb 9.698 oz Body Mass Index (BMI) 25.7 Intake and Output for Last 24 Hours 10/07/17 10/08/17 10/09/17 23:59 23:59 23:59 Intake Total 1712 / 1712 696 / 696 Output Total 1700 / 1700 0 / 0 Balance 696 / 696 General: Awake, Alert, Oriented x 3 HEENT: PERRL, EOMI, Sclera Non Icteric Neck: Supple, Good ROM, No Lymph Node Enlargement Lungs: Clear to auscultation Cardiovascular: Regular Rhythm, Normal S1, Normal S2, No Murmurs, No Rubs, No Gallops Vascular: No Carotid Bruits, Normal Femoral Pulses, Normal Radial Pulses, Normal Dorsalis Pedal Pulse, Normal Posterior Tibial Pulses Abdomen: Bowel Sounds Present, Soft, Non Tender, No HSM, No Organomegaly Extremities: No Cyanosis, No Clubbing, No edema Neurological: No Focal Motor or Sensory Deficit 10/08/17 14:58: Magnesium 2.0, Troponin I < 0.02 10/08/17 20:41: Troponin I < 0.02 10/09/17 02:00: WBC 6.2, RBC 4.51 L, Hgb 14.1, Hct 41.0, MCV 90.9, MCH 31.3, MCHC 34.4, RDW 12.7, RDW Differential 41.1, Plt Count 201, MPV 10.0 10/09/17 02:00: Sodium 142, Potassium 3.5, Chloride 108 H, Carbon Dioxide 27.0, Anion Gap 7, BUN 17, Creatinine 0.84, Est GFR (MDRD) Af Amer 115, Est GFR (MDRD ) Non-Af 95, BUN/Creatinine Ratio 20.3 H, Glucose 101, Calcium 8.6, Triglycerides 69, Cholesterol 229 H, LDL Cholesterol 172 H, VLDL Cholesterol 14 , HDL Cholesterol 43 10/09/17 02:00: Troponin I < 0.02 10/09/17 02:00: PT 14.5, INR 1.1, APTT 37.1 H Rhythm: EKG: ECHO: Stress Test: Pulmonary abnormal for EKG and echocardiographic changes. Final report pending. Cardiac Cath: PCI: CT Surgery: Holter monitor: EPS: PPM: CXR: Chest CT Scan: Medical Necessity - Tobacco Use Smoking Status: Former smoker - Quit approximately 25 years prior with a 25-pack -year history of cigarette tobacco. Tobacco Use: Non-smoker Assessment/Plan 1. Exertional chest pressure: Patient has had progressively worsening exertional chest pressure over the last 2 weeks, radiating down both arms, with associated shortness of breath and dyspnea on exertion. The patient's risk factors of age, hypertension, hypercholesterolemia, and the fact that he had a younger sister developed coronary disease, I recommend that he be admitted and ruled out for myocardial infarction. Recommend continuing baby aspirin, subcu Lovenox per protocol, and rule out for myocardial infarction with troponins ?3 sets. Troponins were negative ?3. Patient underwent treadmill echocardiogram this morning which was abnormal for chest pain, bilateral arm pain, ST segment depression, and possible old anterior and apical hypokinesis. Final results pending. At this point would recommend loading the patient with 300 mg of Plavix and starting him on 75 mg p.o. daily. Recommend he undergo heart catheterization tomorrow morning. I will discuss with the patient is later today the implications of his abnormal stress test and a catheterization going forward. In addition I recommended he undergo a 2D echo with Doppler to document his LV function, pulmonary pressures and valvular function. If the patient's above cardiac workup is negative, I would refer him to pulmonary for possible PFTs given his history of smoking and exposure to laquer chemicals. 2. Hypercholesterolemia: Recommend obtaining a fasting lipid profile, and treating the patient with either gemfibrozil or Niaspan as he is unable to tolerate statins. 3. Thank you very much for the opportunity to participate in the cardiac care of your patient. Code Visit Inpatient E&M: 33192 Subs Hosp L2
--- NOTE | 2017-10-09 11:32 | PN_ITS ---
Patient Problems: Active and Suspected Problems Chest pain (Acute) Dyspnea on exertion (Acute) Hypercholesterolemia (Acute) Subjective: Patient seen and examined. Denies chest pain. States chest pain typically occurs with exertion with example of recently shoveling dirt or walking aggressively. Patient denies chest pain with rest. He describes associated shortness of breath with episodes of chest pain. Denies current complaints. - Physical Exam General: Alert, Oriented x3, Cooperative, No apparent distress HEENT: Atraumatic, PERRLA, EOMI, Normocephalic Neck: Supple, No JVD, Negative Carotid Bruits Lungs: Clear to auscultation, Normal air movement Cardiovascular: Regular rate, Regular Rhythm, Normal S1, Normal S2, No murmurs Abdomen: Bowel Sounds Present, Soft, Non Tender, Non-Distended Extremities: No clubbing, No cyanosis, No edema, Capillary Refill Less than 3 Seconds Skin: No rashes, No breakdown Musculoskeletal: No Tenderness to Palpation of Joints or Extremities Neurological: Cranial nerves II-XII grossly intact, Neuro grossly intact Psych/Mental Status: Normal Affect, Appropriate Vital Signs Temp Pulse Resp BP Pulse Ox 99.1 F 67 16 135/65 H 94 10/09/17 08:00 10/09/17 10:59 10/09/17 08:00 10/09/17 08:00 10/09/17 08:00 Oxygen Delivery Method Room Air Weight: 79.2 kg Body Mass Index (BMI) 25.7 Intake and Output for Last 24 Hours 10/07/17 10/08/17 10/09/17 23:59 23:59 23:59 Intake Total 1712 / 1712 696 / 696 Output Total 1700 / 1700 0 / 0 Balance 696 / 696 Laboratory Tests Past 24 Hrs 10/08/17 10/08/17 10/09/17 14:58 20:41 02:00 WBC 6.2 RBC 4.51 L Hgb 14.1 Hct 41.0 MCV 90.9 MCH 31.3 MCHC 34.4 RDW 12.7 RDW Differential 41.1 Plt Count 201 MPV 10.0 PT INR APTT Sodium Potassium Chloride Carbon Dioxide Anion Gap BUN Creatinine Estim Creat Clear Calc Est GFR (MDRD) Af Amer Est GFR (MDRD) Non-Af BUN/Creatinine Ratio Glucose Calcium Magnesium 2.0 Troponin I < 0.02 < 0.02 Triglycerides Cholesterol LDL Cholesterol VLDL Cholesterol HDL Cholesterol TSH 0.83 Free T4 1.22 10/09/17 10/09/17 10/09/17 02:00 02:00 02:00 WBC RBC Hgb Hct MCV MCH MCHC RDW RDW Differential Plt Count MPV PT 14.5 INR 1.1 APTT 37.1 H Sodium 142 Potassium 3.5 Chloride 108 H Carbon Dioxide 27.0 Anion Gap 7 BUN 17 Creatinine 0.84 Estim Creat Clear Calc 77.15 Est GFR (MDRD) Af Amer 115 Est GFR (MDRD) Non-Af 95 BUN/Creatinine Ratio 20.3 H Glucose 101 Calcium 8.6 Magnesium Troponin I < 0.02 Triglycerides 69 Cholesterol 229 H LDL Cholesterol 172 H VLDL Cholesterol 14 HDL Cholesterol 43 TSH Free T4 Medical Necessity - Tobacco Use Smoking Status: Former smoker - Quit approximately 25 years prior with a 25-pack -year history of cigarette tobacco. Tobacco Use: Non-smoker Assessment/Plan Active and Suspected Problems Chest pain (Acute) Dyspnea on exertion (Acute) Hypercholesterolemia (Acute) Patient is a 72-year-old male admitted 10/08/17 due to chest pain. He has a past medical history of hypertension, hyperlipidemia, asthma, history of Venecia thyroiditis. 1. Chest pain-troponin negative ?3. Patient underwent nuclear stress test which was abnormal. Cardiology consulted. Patient will undergo cardiac catheterization tomorrow morning. Patient was loaded with Plavix 300 mg and started on 75 milligrams daily. Continue aspirin. Echocardiogram shows an EF of 65%, stage I diastolic dysfunction. Stress echo positive for ischemia by EKG and echocardiographic criteria. Patient developed bilateral arm pain and fatigue during testing. Patient was also noted to have ST segment depression at peak exercise. 2. Hypertension-stable, continue home triamterene/HCTZ regimen. 3. Hyperlipidemia-cholesterol 229, LDL 172. Patient has a reported statin intolerance. Continue fish oil supplementation. Begin gemfibrozil 600 mg p.o. twice daily before meals. 4. Asthma, mild-no acute exacerbation. As needed albuterol aerosol. 5. 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 TSH/free T4 within normal limits. DVT prophylaxis-Lovenox subcu. This patient was seen by ALBA Figueroa under the supervision of Dr. Frankel.
[2017-10-09] MEDS: Triamterene 37.5MG/Hctz 25MG Capsule 1 CAP PO (11:35)
[2017-10-09] MEDS: Clopidogrel Bisulfate 300 MG Tablet PO (11:43)
--- NOTE | 2017-10-09 14:37 | CASEMGMT ---
Per Dr. Frankel, pt had some questions regarding inpt and obs status. This RN CM to room with Medicare Inpt vs Obs booklet and answered pt questions at this time. Pt thanks this RN CM for information and states no further concerns/needs at this time. SStaten RN CM
[2017-10-09] MEDS: Gemfibrozil 600 MG Tablet PO (16:16)
[2017-10-09] MEDS: Famotidine 20 MG Tablet PO (21:12)
[2017-10-10] VITALS (14 sets, daily range): BP systolic 127–144; BP diastolic 62–78; PULSE 58–70; RESP 16; TEMP 36.6–36.8; O2SAT 91–96
[2017-10-10 05:12] LABS: Bacteria 0 SEEN /hpf (None Seen); Mucous, Urine 0 SEEN /hpf (<or=2+); Red Blood Cells-Urine 0 SEEN /hpf (0-5); Squamous Epithelial Cells - UA 0 SEEN /hpf (0-5); White Blood Cells 0 SEEN /hpf (0-5)
[2017-10-10 05:17] LABS: Color, Urine Yellow (Yellow); Glucose, Dipstick Normal (Normal); Ketone-Dipstick Negative (Negative); Leukocyte Esterase-Dipstick Negative /ul (Negative); Nitrite-Dipstick Negative (Negative); Occult Blood-Urine Negative /ul (Negative); Protein-Dipstick Negative (Negative); Urine Bilirubin Dipstick Negative (Negative); Urine Clarity Clear (Clear); Urine Urobilinogen Normal (Normal); Urine pH 6.5 (5.0 - 8.0)
[2017-10-10 05:17] LABS: Absolute Lymphocyte Count 1.88 X10^3/ul (0.83-4.51); Basophil# 0.02 X10^3/uL; Basophil% 0.4 % (0-1); Eosinophil# 0.13 X10^3/uL; Eosinophils% 2.4 % (0-5); Hematocrit 44.9 % (40-54); Hemoglobin 14.8 g/dl (13.0-16.5); Lymphocyte # 1.88 X10^3/ul (4.0); Lymphocyte % 34.2 % (19-41); Mean Corpuscular Hgb 30.2 pg (27.0-32.0); Mean Corpuscular Volume 91.6 fL (80-94); Mean Platelet Vol. 9.9 fl (6.2-12.0); Monocyte# 0.44 X10^3/uL; Neutrophil # 3.02 X10^3/uL (2.7-7.7); Neutrophil % 54.8 % (47-70); Platelet Count 199 K/mm3 (150-450); White Blood Count 5.5 K/mm3 (4.4-11.0)
[2017-10-10 05:28] LABS: POSITIVE COUNT NO; POSITIVE DIFFERENTIAL NO; POSITIVE MORPHOLOGY NO
[2017-10-10 05:29] LABS: Anion Gap 6 (5-15); BUN 12 mg/dL (7-18); BUN/Creat Ratio 14.3 RATIO (10-20); Calcium,Total 9.1 mg/dL (8.5-10.1); Chloride 108 mmol/L (98-107); Creatinine, Serum 0.84 mg/dL (0.70-1.30); EST Glomerular Filtration Rate 95 mL/min (>60); Est Glom Filt Rate - Afr Amer 115 mL/min (>60); Estimated Creatinine Clearance 77.15 ml/min; Glucose 106 mg/dL (74-106); Potassium 3.8 mmol/L (3.5-5.1); Sodium Level 143 mmol/L (136-145)
[2017-10-10 05:37] LABS: International Normalized Ratio 1.1; Prothrombin Time (Protime)PT. 14.1 SECONDS (11.7-14.9)
[2017-10-10 05:38] LABS: Partial Thromboplast Time 30.3 Seconds (24.1-36.2)
--- NOTE | 2017-10-10 05:55 | EKG12_ITS ---
Test Reason : CP Blood Pressure : / mmHG Vent. Rate : 072 BPM Atrial Rate : 072 BPM P-R Int : 156 ms QRS Dur : 136 ms QT Int : 404 ms P-R-T Axes : 048 013 008 degrees QTc Int : 442 ms Normal sinus rhythm Right bundle branch block Abnormal ECG Confirmed by AILEEN UP, SONAL ([id number]), online content editor [employer]ER ([id number]) on 10/10/2017 1:05:42 PM Referred By: DEVORA/MARISSA Confirmed By:SONAL GALLAGHER MD
[2017-10-10] MEDS: Levothyroxine 137 MCG Tablet PO (06:14)
[2017-10-10] MEDS: Clopidogrel Bisulfate 75 MG Tablet PO (06:15)
[2017-10-10] MEDS: Aspirin E.C. 81 MG Tablet PO (06:15)
[2017-10-10] MEDS: 0.9% Normal Saline 1,000 ML 15 ML IV (06:15)
[2017-10-10] MEDS: DiphenhydrAMINE 25 MG Capsule 50 MG PO (07:31)
--- NOTE | 2017-10-10 08:56 | CL.D_ITS ---
Patient Name: GERRI BENÍTEZ Study Date: 10/10/2017 Performing: Sebastien Stallings MD Ht: 68.89 inches 175 cm : 1945 Wt: 174.17 lbs 79 kg Age: 72 Gender: male BSA: 1.95 PROCEDURE(S) PERFORMED OD16-URJ/COR/LV CLINICAL PROFILE AND INDICATIONS Indications: ACS > 24 hrs, New Onset Angina <= 2 months, Worsening Angina Heart Failure: None Stress/Imaging Stress Echocardiogram: Yes Result: Positive High RiskStress Echocardiogram: Positi ve High Risk Angina Classification Anginal Classification w/in 2 Weeks: CCS III CAD Presentations: Unstable angina. Comorbidities/Risk Factors: Hypertension Dyslipidemia CONCLUSIONS RECOMMENDATIONS ASA Indefinitely Surgery consult for coronary revascularization d/w Dr. Frankel Have notified Dr Ludwig's nurse practitioner at [facility] to arrange for transfer to [facility]. DESCRIPTION OF PROCEDURE The patient arrived to the procedure lab. The risks and benefits of the procedure as well as a full d escription of our services here and current unavailability of surgical backup were fully explained to the patient and/or their significant other prior to the catheterization. The Timeout was completed, verifying the correct patient and procedure. The patient's procedural site was prepped and draped in the usual fashion. Local anesthetic was given subcutaneously to right groin region with Lidocaine 2%. Using a modified Seldinger technique, arterial access was obtained via the right femoral artery, a 4 Fr sheath was inserted Left Coronary Artery selective angiography was performed in multiple views us ing a 4 Fr. JL5 catheter. Right Coronary Artery selective angiography was then performed in multiple views using a 4 Fr. 3DRC catheter. Left Ventriculography was performed in GORDON projection using a 4 Fr . Pigtail catheter. LV to AO pullback pressures were then recorded.The arterial sheath was pulled and manual compression applied until hemostasis is achieved. CORONARY ANGIOGRAPHY DOMINANCE: Right Dominant LEFT HEART ASSESSMENT Left Ventricular Ejection Fraction: by LV Gram 65 % Normal LV wall motion Normal Left Ventricular systolic function Normal Left Ventricular End Diastolic Pressure LEFT MAIN: No significant disease noted LEFT ANTERIOR DECENDING ARTERY: MID LAD: 90 % Stenosis DIAGONAL 1: Proximal - Mild luminal irregularities less than 30% DIAGONAL 2: Mid - 65 % Stenosis CIRCUMFLEX ARTERY: MID CIRC: 70 % Stenosis RIGHT CORONARY ARTERY: is occluded COLLATERAL FLOW: Collateral flow from Left to Right COMPLICATIONS No Complications PROCEDURE MEDICATIONS Versed 2 mg IV Oxygen: 2 L/min via nasal cannula SUMMARY OF HEMODYNAMIC DATA Time AIR REST ECG 07:50:47 AO 153/77 (110) SA 08:18:20 LV 162/-25, 7 08:24:46 LV 166/-25, 9 08:24:54 LVp 167/66, 70 08:25:37 AOp 168/69 (110) 08:25:42 Signed By Sebastien Stallings MD On 10/10/2017 08:55:33 Sebastien Stallings MD
--- NOTE | 2017-10-10 09:10 | PCM.DC.SUM ---
Discharge Date and Diagnosis Date of Admission: 10/08/17 Date of Discharge: 10/10/17 - Primary Discharge Diagnosis Active and Suspected Problems 1. Unstable Angina, abnormal stress test 2. CAD with high grade lesions- requiring transfer for revascularization 3. Hyperlipidemia 4. Hypertension - Secondary Discharge Diagnosis Chronic Problems HTN (hypertension) (Chronic) HLD (hyperlipidemia) (Chronic) Asthma (Chronic) History of Venecia thyroiditis (Chronic) Allergic rhinitis (Chronic) Hospital Course and Treatment Imaging Results: Diagnostic Data Chest X-Ray 10/08/17 12:07 IMPRESSION: Stable exam without evident acute cardiopulmonary disease. Electronically Signed: Yayo Munoz MD at 13:31 EDT , Service support , Dr. Stallings- Cardiology Operations: None Procedures: Cardiac catheterization, Stress test Summary of Care Provided: Patient is a 72-year-old male admitted 10/08/17 due to chest pain. He has a past medical history of hypertension, hyperlipidemia, asthma, history of Venecia thyroiditis. 1. Unstable Angina, CAD with high grade lesions- requiring transfer for revascularization. Troponin negative. Echocardiogram shows an EF of 65%, stage I diastolic dysfunction. Stress echo positive for ischemia by EKG and echocardiographic criteria. Patient developed bilateral arm pain and fatigue during testing. Patient was also noted to have ST segment depression at peak exercise. Cardiology was consulted. Patient underwent cardiac catheterization which demonstrated mid LAD 90% stenosis, diagonal 130%, diagonal to 65%, mid circumflex 70%, right coronary artery occluded. Dr. Ludwig, cardiothoracic surgeon was contacted from [facility] for coronary revascularization by Dr. Stallings. Patient is stable at time of discharge to [facility]. Blood pressure 144/78, heart rate 66, respiratory rate 16, oxygen 94% on room air. Patient denies chest pain. Post cath site without signs of hematoma. 2. Hypertension-stable, continue home triamterene/HCTZ regimen. 3. Hyperlipidemia-cholesterol 229, LDL 172. Patient has a reported statin intolerance. Continue fish oil supplementation. Started on gemfibrozil 600 mg p.o. twice daily before meals. 4. Asthma, mild-no acute exacerbation. As needed albuterol aerosol. 5. 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 TSH/free T4 within normal limits. General: Alert, Oriented x3, Cooperative, No apparent distress HEENT: Atraumatic, PERRLA, EOMI, Normocephalic Neck: Supple, No JVD, Negative Carotid Bruits Lungs: Clear to auscultation, Normal air movement Cardiovascular: Regular rate, Regular Rhythm, Normal S1, Normal S2, No murmurs Abdomen: Bowel Sounds Present, Soft, Non Tender, Non-Distended Extremities: No clubbing, No cyanosis, No edema, Capillary Refill Less than 3 Seconds Skin: No rashes, No breakdown Musculoskeletal: No Tenderness to Palpation of Joints or Extremities Neurological: Cranial nerves II-XII grossly intact, Neuro grossly intact Psych/Mental Status: Normal Affect, Appropriate Patient seen and examined prior to discharge. Physical assessment as noted above. Patient is stable for discharge to [facility] for CABG. This patient was seen by ALBA Figueroa under the supervision of Dr. Frankel. Home Medications: Medications to take at Discharge Albuterol Inhaler [Ventolin Hfa (SP)] 1 - 2 puff INHALATION Q6H PRN PRN 10/08/17 Budesonide Inhaler 90 mcg [Pulmicort Flexhaler 90 mcg] 2 puff INHALATION BID PRN 10/08/17 Cholecalciferol (Vitamin D3) [Vitamin D3] 4,000 unit PO DAILY 10/08/17 Fexofenadine HCl 180 mg PO DAILY PRN 10/08/17 Fish Oil/Dha/Epa [Fish Oil 1,200 mg Fish Oil] 1 each PO DAILY 10/08/17 Gluc/Evans-MSM#1/C/Abrahan/Gabe/Bor [Glucosamine-Chondroitin Caplet] 1 each PO DAILY 10/08/17 Levothyroxine [Synthroid] 137 mcg PO DAILY 10/08/17 Nabumetone [Relafen] 500 mg PO DAILY 10/08/17 Triamterene/Hydrochlorothiazid [Triamterene-Hctz 37.5-25 mg Tb] 1 each PO DAILY 10/08/17 Primary Care Physician: Álvaro Purcell DO [Primary Care Provider] - Disposition: Acute care Hospital Minutes spent on discharge:: 35 Patient Condition:: Stable Medical Necessity - Tobacco Use Smoking Status: Former smoker - Quit approximately 25 years prior with a 52-xhne-jnnl history of cigarette tobacco. Tobacco Use: Non-smoker Meaningful Use Info Meaningful Use Diagnoses (Choose all that apply): None applicable
--- NOTE | 2017-10-10 09:46 | DS.PCM_ITS ---
Discharge Date and Diagnosis Date of Admission: 10/08/17 Date of Discharge: 10/10/17 - Primary Discharge Diagnosis Active and Suspected Problems 1. Unstable Angina, abnormal stress test 2. CAD with high grade lesions- requiring transfer for revascularization 3. Hyperlipidemia 4. Hypertension - Secondary Discharge Diagnosis Chronic Problems HTN (hypertension) (Chronic) HLD (hyperlipidemia) (Chronic) Asthma (Chronic) History of Venecia thyroiditis (Chronic) Allergic rhinitis (Chronic) Hospital Course and Treatment Imaging Results: Diagnostic Data Chest X-Ray 10/08/17 12:07 IMPRESSION: Stable exam without evident acute cardiopulmonary disease. Electronically Signed: Yayo Munoz MD at 13:31 EDT , Service support , Dr. Stallings- Cardiology Operations: None Procedures: Cardiac catheterization, Stress test Summary of Care Provided: Patient is a 72-year-old male admitted 10/08/17 due to chest pain. He has a past medical history of hypertension, hyperlipidemia, asthma, history of Venecia thyroiditis. 1. Unstable Angina, CAD with high grade lesions- requiring transfer for revascularization. Troponin negative. Echocardiogram shows an EF of 65%, stage I diastolic dysfunction. Stress echo positive for ischemia by EKG and echocardiographic criteria. Patient developed bilateral arm pain and fatigue during testing. Patient was also noted to have ST segment depression at peak exercise. Cardiology was consulted. Patient underwent cardiac catheterization which demonstrated mid LAD 90% stenosis, diagonal 130%, diagonal to 65%, mid circumflex 70%, right coronary artery occluded. Dr. Ludwig, cardiothoracic surgeon was contacted from [facility] for coronary revascularization by Dr. Stallings. Patient is stable at time of discharge to [facility]. Blood pressure 144/78, heart rate 66, respiratory rate 16, oxygen 94% on room air. Patient denies chest pain. Post cath site without signs of hematoma. 2. Hypertension-stable, continue home triamterene/HCTZ regimen. 3. Hyperlipidemia-cholesterol 229, LDL 172. Patient has a reported statin intolerance. Continue fish oil supplementation. Started on gemfibrozil 600 mg p.o. twice daily before meals. 4. Asthma, mild-no acute exacerbation. As needed albuterol aerosol. 5. 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 TSH/free T4 within normal limits. General: Alert, Oriented x3, Cooperative, No apparent distress HEENT: Atraumatic, PERRLA, EOMI, Normocephalic Neck: Supple, No JVD, Negative Carotid Bruits Lungs: Clear to auscultation, Normal air movement Cardiovascular: Regular rate, Regular Rhythm, Normal S1, Normal S2, No murmurs Abdomen: Bowel Sounds Present, Soft, Non Tender, Non-Distended Extremities: No clubbing, No cyanosis, No edema, Capillary Refill Less than 3 Seconds Skin: No rashes, No breakdown Musculoskeletal: No Tenderness to Palpation of Joints or Extremities Neurological: Cranial nerves II-XII grossly intact, Neuro grossly intact Psych/Mental Status: Normal Affect, Appropriate Patient seen and examined prior to discharge. Physical assessment as noted above. Patient is stable for discharge to [facility] for CABG. This patient was seen by ALBA Figueroa under the supervision of Dr. Frankel. Home Medications: Medications to take at Discharge Albuterol Inhaler [Ventolin Hfa (SP)] 1 - 2 puff INHALATION Q6H PRN PRN Budesonide Inhaler 90 mcg [Pulmicort Flexhaler 90 mcg] 2 puff INHALATION BID PRN 10/08/17 Cholecalciferol (Vitamin D3) [Vitamin D3] 4,000 unit PO DAILY 10/08/17 Fexofenadine HCl 180 mg PO DAILY PRN 10/08/17 Fish Oil/Dha/Epa [Fish Oil 1,200 mg Fish Oil] 1 each PO DAILY 10/08/17 Gluc/Evans-MSM#1/C/Abrahan/Gabe/Bor [Glucosamine-Chondroitin Caplet] 1 each PO DAILY 10/08/17 Levothyroxine [Synthroid] 137 mcg PO DAILY 10/08/17 Nabumetone [Relafen] 500 mg PO DAILY 10/08/17 Triamterene/Hydrochlorothiazid [Triamterene-Hctz 37.5-25 mg Tb] 1 each PO DAILY 10/08/17 Primary Care Physician: Álvaro Purcell DO [Primary Care Provider] - Disposition: Acute care Hospital Minutes spent on discharge:: 35 Patient Condition:: Stable Medical Necessity - Tobacco Use Smoking Status: Former smoker - Quit approximately 25 years prior with a 25-pack -year history of cigarette tobacco. Tobacco Use: Non-smoker Meaningful Use Info Meaningful Use Diagnoses (Choose all that apply): None applicable
[2017-10-10] MEDS: Triamterene 37.5MG/Hctz 25MG Capsule 1 CAP PO (10:46)
[2017-10-10] MEDS: Famotidine 20 MG Tablet PO (10:46)
[2017-10-10] MEDS: Losartan Potassium 25 MG Tablet PO (10:52)
[2017-10-10] MEDS: Carvedilol 3.125 MG TABLET PO (10:52)
== END 2017-10-10 13:07 | disposition short-term general hospital (02) | DRG 287 ==
LOC: ED 12:40 → PCU 13:18
PROVIDERS: Internal Medicine Cardiovascular Disease; Admitting Provider Family Medicine; Emergency Provider Emergency Medicine; Family Provider Student in an Organized Health Care Education/Training Program; PCP Student in an Organized Health Care Education/Training Program; Visit Provider Family Medicine
DX: I25.110 Atherosclerotic heart disease of native coronary artery with unstable angina pectoris (principal); I25.82 Chronic total occlusion of coronary artery; I10 Essential (primary) hypertension; E06.3 Autoimmune thyroiditis; E78.5 Hyperlipidemia, unspecified; J45.909 Unspecified asthma, uncomplicated; Z79.899 Other long term (current) drug therapy; Z87.891 Personal history of nicotine dependence
CPT/HCPCS: 36415; 71045; 80048; 80061; 81001; 83735; 84439; 84443; 84484; 85025; 85027; 85610; 85730; 93005; 93017; 93306; 93350; 93458; 99152; 99153; 99285; J7030; Q9957; Q9967; A4216; C1769; C1894; C8928; C8929

== ENCOUNTER → 2018-05-20 12:29 | Outpatient (CLI) | payer MEDICARE, OTHER, SELFPAY | PROVIDERS: Family Provider Student in an Organized Health Care Education/Training Program; PCP Student in an Organized Health Care Education/Training Program; Referring Provider Physician Assistant Medical; Visit Provider Physician Assistant Medical | DX: I48.91 Unspecified atrial fibrillation (principal); I97.89 Other postprocedural complications and disorders of the circulatory system, not elsewhere classified; R00.2 Palpitations | CPT/HCPCS: 93225; 93226 ==

== ENCOUNTER 2022-12-05 07:17 | Day surgery (SDC) | payer MEDICARE, OTHER, SELFPAY ==
[2022-12-05] VITALS (7 sets, daily range): BP systolic 93–147; BP diastolic 54–67; PULSE 66–82; RESP 16; TEMP 36.6–37.2; O2SAT 94–100; BMI 24.9
--- NOTE | 2022-12-05 | GASB_PTH ---
PATIENT: GERRI BENÍTEZ LOC: EN U#:[id number] AGE/SX: 77/M ROOM: RE12/05/[address]: Dr. Omar Albrecht MD : 1945 BED: DIS: 12/05/2022 SPEC #: [id number] RECD: 12/05/22 12:18 STATUS: APOORVA JOSEPH #: [id number] MICAELA: 12/05/22 00:[address]: Omar Albrecht DEPT: SURGICAL PATHOLOGY RECD BY: Gold Salazar ENTERED: 12/05/22 12:19 SP TYPE: Gastric Bx OTHR DR: Dr. Álvaro Purcell DO Tissues: A - Duodenum, NOS B - Gastric mucous membrane C - Esophageal mucous membrane D - Esophageal mucous membrane Procedures: Special Stain Group II Surgery Specimen Level IV Alcian Blue/PAS (control) HEADER OPERATION: Colonoscopy, EGD ([facility] [place] [place]) with biopsies PRE-OP DIAGNOSIS: Abdominal pain, constipation, dysphagia TISSUE SUBMITTED: A ? Duodenal biopsy, B ? Antrum biopsy for H. pylori and histology, C ? Distal esophagus biopsy, D ? Mid esophagus biopsy MICROSCOPIC DIAGNOSIS A. Duodenum, biopsy: No pathologic change. B. Gastric antrum, biopsy: Mild chronic inflammation. See comment. C. Distal esophagus, biopsy: Gastroesophageal junctional mucosa with mild chronic inflammation. Focal changes of reflux. No evidence of goblet cell metaplasia. See comment. D. Mid esophagus, biopsy: No pathologic change. AM:elaine 12/06/2022 COMMENT B. The results of immunohistochemistry for Helicobacter pylori will be reported separately ([id number]). C. Alcian blue/PAS stain with matched control supports the above diagnosis. MICROSCOPIC DESCRIPTION Slides are reviewed. GROSS DESCRIPTION A - Received in fixative is one container labeled with the patient's name and designated duodenal biopsy. The specimen consists of one irregular fragment of light shook soft tissue that measures 0.3 x 0.2 x 0.1 cm. The specimen is totally submitted in one cassette. B - Received in fixative is one container labeled with the patient's name and designated antrum biopsy. The specimen consists of one irregular fragment of light shook soft tissue that measures 0.3 x 0.3 x 0.1 cm. The specimen is totally submitted in one cassette. C - Received in fixative is one container labeled with the patient's name and designated distal esophagus. The specimen consists of one irregular fragment of light shook soft tissue that measures 0.5 x 0.3 x <0.1 cm. The specimen is totally submitted in one cassette. D - Received in fixative is one container labeled with the patient's name and designated mid esophagus. The specimen consists of one irregular fragment of light shook soft tissue that measures 0.6 x 0.3 x <0.1 cm. The specimen is totally submitted in one cassette. / AM:elaine 12/05/2022 TC:3 CPT: 87099 x4, 52375
[2022-12-05] MEDS: Lactated Ringers 1,000 ML 15 ML IV (07:59)
--- NOTE | 2022-12-05 07:59 | HP.PCM_ITS ---
History and Physical Date of Admission: 12/05/22 Visit Reasons:?SCOPE FOR LUQ PAIN Chief Complaint: Consult for LUQ pain Director Of Radio Services Required: No Is patient in pain?: Yes Allergies latex Allergy (Verified 10/21/22 08:52) Hivesmetoprolol Adverse Reaction (Severe, Verified 10/21/22 08:52) Severe frpmycbbapKyndyac-PMY-CqS Reductase Inhibitor [Pdtlina-Fch-Reh Reductase Inhibitor] Adverse Reaction (Intermediate, Verified 10/21/22 08:52) mylagiascodeine Adverse Reaction (Verified 10/21/22 08:52) Nausea Medications levothyroxine 137 mcg tablet 137 mcg PO DAILY thyroid 10/08/17 [History Confirmed 10/21/22] triamterene 37.5 mg-hydrochlorothiazide 25 mg tablet 1 ea PO DAILY fluid in ear 10/08/17 [History Confirmed 10/21/22] aspirin 81 mg tablet,delayed release (Adult Low Dose Aspirin) 81 mg PO QDAY 11/29/17 [History Confirmed 10/21/22] fexofenadine 180 mg tablet (Quynh Allergy) 180 mg PO DAILY 04/14/18 [History Confirmed 10/21/22] vitamin B complex (Complex B-100 tablet,extended release) 1 tab PO DAILY 04/14/18 [History Confirmed 10/21/22] acetaminophen 650 mg tablet,extended release (Tylenol Arthritis Pain) 650 mg PO DAILY PRN 10/20/18 [History Confirmed 10/21/22] gemfibrozil 600 mg tablet 600 mg PO BID #60 tabs 10/20/18 [Rx Confirmed 10/20/18] glucosamine 750 mg-MSM 60 mg-chondroit 150 mg-hyaluron ac 1 mg tablet tab PO DAILY 10/20/18 [History Confirmed 10/21/22] omega-3 fatty acids 1,000 mg capsule (Fish Oil Concentrate) 2,000 mg PO DAILY 10/20/18 [History Confirmed 10/21/22] ranitidine HCl 150 mg tablet (Acid Control (ranitidine)) 150 mg PO DAILY PRN 10/20/18 [History Confirmed 10/21/22] cholecalciferol (vitamin D3) 100 mcg (4,000 unit) capsule 2,000 unit PO DAILY 10/21/22 [History] cholecalciferol (vitamin D3) 50 mcg (2,000 unit) capsule 50 mcg PO DAILY 10/21/22 [History Confirmed 10/21/22] PFSH Medical History?(Updated 07/12/22 @ 12:26 by Laura Moore) Atherosclerosis of coronary artery of [place] heart without angina pectoris Chronic back pain Hemothorax, left History of Venecia thyroiditis HLD (hyperlipidemia) HTN (hypertension) Postoperative atrial fibrillation Right bundle branch block Surgical History? H/O arthroscopy of left knee H/O coronary artery bypass surgery (10/14/17) History of cataract surgery History of evacuation of hematoma (10/15/17) History of left heart catheterization (~09/2017) History of lumpectomy of right breast History of right inguinal hernia repair Family History? Mother CAD (coronary artery disease)Father CAD (coronary artery disease) Social History?(Updated 10/20/18 @ 13:[address] Sebastien Stallings MD) Smoking Status:? Former smoker HPI HPI HPI: 77-year-old gentleman is being referred by Dr. Álvaro Purcell for surgical consultation regarding left upper and lateral and lower abdominal pain and constipation and excessive hunger and a written compromise surgical consult recommendations will return to her.? Information provided demonstrates that on February 12, [address] Wesley Prakash the patient had a colonoscopy.? This demonstrated diverticulosis of the sigmoid colon.? A 4 mm polyp of the cecum.? Follow-up colonoscopy at 5 years recommended.? It is of additional note that the patient has a known hiatal hernia from a previous upper endoscopy of April 06, 2018..? He has had coronary bypass grafting x3 and he has had previous bilateral inguinal hernia repairs.? Previous left breast lumpectomy for benign disease.? He carries a 30-year pack year history of smoking having quit June 1990.? Office notes per Dr. Álvaro Purcell reflect that the patient has had a recent normal abdominal and pelvic CT scan. Laboratory of October 07, 2022 obtained at the [facility] demonstrate a BUN of 13 and creatinine of 0.94 with normal liver function test.? TSH is 1.09.? CT of the abdomen pelvis performed July 08, 2022 which is just gallbladder without abnormality and no bile duct dilatation.? Splenic granulomas no splenomegaly.? Pancreas unremarkable.'s kidneys without hydronephrosis.? A small hiatal hernia with no dilatation or wall thickening.? Colonic diverticulosis without evidence of abnormality.? No adenopathy.? Enlarged prostate measuring 6.1 cm in transverse dimension.? Indentation in the base of the urinary bladder.? Small fat-containing bilateral inguinal hernias.? Evidence of previous median sternotomy with wires. White blood cell count was 5.4 with a hemoglobin 15 hematocrit 43.9 platelet count of 237,000 with a normal differential. The patient states that he has had left upper abdominal pain for a year.? It is variable in intensity.? He does not take anything for it.? Does not take any NSAID or acetaminophen or acid reducing agent.? He thinks sometimes when he eats too much spice it can be worse.? This has been ongoing for at least a year.? He also complains of some difficulty swallowing but he says that is intermittent does not feel like there is blockage there.? He used an example that sometimes he feels like he aspirates water.? I am not sure whether this might be related to his anxiety issue.? States that he has been on omeprazole therapy in the past but that was stopped.? Both he and his are little bit nonspecific about that but said it was due to side effects.? He was then started on a probiotic.? He actually denies currently any symptoms that would seem to be consistent with reflux.? He does take aspirin and fish oil. He has had no unexpected weight loss.? No bright red blood per rectum or melena.? No history of DVT. He gets no routine exercise.? He states he tries to do some work in the yard but that it just wears him out. ROS General General: No weight change, appetite, fatigue, colon cancer, breast cancer or weakness HEENT HEENT: Yes difficulty swallowing; No eye injury, eye surgery, swollen glands or hoarseness Endo Endocrine: Yes thyroid disease; No diabetes mellitus, thyroid cancer, Hair loss, heat intolerance or cold intolerance Skin Skin: No rash or changing moles Breast Breast: No left breast lump, right breast lump, nipple discharge, breast pain, abnormal mammogram, abnormal US or breast enlargement Musc Musculoskeletal: Yes back problems, arthritis and gout; No rheumatoid arthritis or joint pain Cardio Cardiovascular: Yes heart disease; No murmur, pacemaker, atrial fibrillation, high blood pressure, heart attack, heart stent, palpitations, shortness of breat with exertion or chest pain Psych Psychiatric: No depression, anxiety or hearing voices Resp Respiratory: No shortness of breath, No sleep apnea, No cough, No COPD, No asthm a, No emphysema and No wheezing Gastro Gastrointestinal: Yes abdominal pain, Yes nausea or vomiting, No diarrhea, No constipation, No blood in stool, Yes acid reflux, No hemorrhoids, No ulcers, No gallbladder problem and No black,tarry stools Bharat Hematologic: Yes blood thinners, No blood disorders, No bleeding, No anemia and No blood clots Neuro Neurologic: No system reviewed and no additional complaints, except as documented, No as per HPI, No abnormal gait, No abnormal hearing, No abnormal movements, No abnormal speech, No behavioral changes, No burning sensations, No confusion, No convulsions, No disequilibrium, No dizziness, No localized weakness, No frequent falls, No headache(s), No lack of coordination, No loss of vision, No memory loss, Yes numbness, No other visual disturbances, No radicular pain, No restless legs, No sensory deficit, No syncope, Yes tingling, No tremor(s), No weakness and No other Exam Const General: cooperative, comfortable and no acute distress [facility] Head: normal to inspection Eyes General: appearance normal, both eyes and all related structures Neck Neck: normal visual inspection Chest Chest palpation & inspection: normal inspection of the chest Resp Effort & Inspection: normal respiratory effort Auscultation: clear to auscultation bilaterally Cardio Rate: regular rate Rhythm: regular rhythm GI Palpation: soft and no hepatosplenomegaly Auscultation: normal bowel sounds Other: Mild tenderness palpation left upper quadrant without mass no rebound no guarding.? Not pulsatile or expansile Musc Cervical Spine: normal cervical lordosis Skin General: no rashes or lesions noted Neuro General: patient alert, patient awake and patient oriented x3 Extrem General: normal to inspection Psych Mood: anxious mood Assessment and Plan Assessment and Plan (1) Abdominal pain: ?Status:?Chronic (2) Constipation: ?Status:?Chronic (3) Dysphagia: ?Status:?Chronic ?Plan: 77-year-old gentleman.? Over a year history of left upper quadrant pain.? Unremarkable CT scan.? I recommend for him an esophagogastroduodenoscopy with possible biopsy or polypectomy and colonoscopy with possible biopsy or polypectomy as indicated.? I have reassured the patient that at least at this point with such chronicity of symptoms I am not anticipating finding any acute issue.? We will try to assist his primary care physician however in determining a diagnosis.? I suspect that his chronic anxiety issue is potentially a contributor to this problem. He has had an opportunity to ask and have questions answered.? We will schedule procedure at his discretion.? I very much appreciate the kind opportunity of ass isting with the surgical care. Copy: Dr. Álvaro Albrecht M.D., F.A.C.S I have examined the patient and the H&P has been reviewed. There are no clinical changes since date of exam. Omar Albrecht M.D., F.A.C.S.
--- NOTE | 2022-12-05 08:30 | IMM_PTH ---
PATIENT: GERRI BENÍTEZ LOC: EN U#:[id number] AGE/SX: 77/M ROOM: RE12/05/[address]: Dr. Omar Albrecht MD : 1945 BED: DIS: 12/05/2022 SPEC #: [id number] RECD: 12/05/22 12:51 STATUS: APOORVA REKanchan #: [id number] MICAELA: 12/05/22 08:[address]: Omar Albrecht DEPT: IMMUNOHISTOCHEMISTRY RECD BY: Margoth Sorensen ENTERED: 12/05/22 12:52 SP TYPE: IMMUNO OTHR DR: Dr. Álvaro Purcell DO Tissues: B - Stomach, NOS Procedures: H Pylori (initial) PHYSICIAN & INSTITUTION [place] [id number] SPECIMEN INFORMATION: Tissue Source: B - Antrum Clinical Info: Abdominal pain, constipation, dysphagia Specimen Number: [id number] CPT code: 39610 METHODOLOGY: Deparaffinized sections of prefer/formalin-fixed tissue or PAP/DQ stained slides are incubated with monoclonal/polyclonal antibodies/oligonucleotide probes. Localization is made via biotin free immunoperoxidase method. Appropriate controls are performed and reacted as expected. Results on target cell population are indicated in the following table: RESULTS: ANTIBODY / CLONE RESULT Block B H Pylori (polyclonal) negative These tests were developed and their performance characteristics determined by [facility]. They may not have been cleared or approved by the U.S. Food and Drug Administration. The FDA has determined that such clearance or approval is not necessary. The above immunohistochemical/dualISH markers are ordered and reviewed by the Pathologist. INTERPRETATION: B. Antrum, biopsy: Negative for Helicobacter pylori organisms. AM:elaine 12/06/2022
--- NOTE | 2022-12-05 09:16 | OP.EGD_ITS ---
Patient Name: Logan Marroquin Procedure Date: 12/05/2022 8:40 AM Date of : 1945 Age: 77 Procedure: Upper GI endoscopy Indications: Abdominal pain in the left upper quadrant Providers: Omar Albrecht MD Referring MD: Omar Albrecht MD Medicines: See the Anesthesia note for documentation of the administered medications Complications: No immediate complications. Procedure: Pre-Anesthesia Assessment: - Prior to the procedure, a History and Physical was performed, and patient medications and allergies were reviewed. The patient's tolerance of previous anesthesia was also reviewed. The risks and benefits of the procedure and the sedation options and risks were discussed with the patient. All questions were answered, and informed consent was obtained. Prior Anticoagulants: The patient has taken no previous anticoagulant or antiplatelet agents. ASA Grade Assessment: II - A patient with mild systemic disease. After reviewing the risks and benefits, the patient was deemed in satisfactory condition to undergo the procedure. After obtaining informed consent, the endoscope was passed under direct vision. Throughout the procedure, the patient's blood pressure, pulse, and oxygen saturations were monitored continuously. The pediatric colonoscope was introduced through the mouth, and advanced to the second part of duodenum. The upper GI endoscopy was accomplished without difficulty. The patient tolerated the procedure well. Scope In: 8:46:51 AM Scope Out: 8:54:06 AM Total Procedure Duration Time 0 hours 7 minutes 15 seconds Findings: The middle third of the esophagus was normal. Biopsies were taken with a cold forceps for histology. A small hiatal hernia was present. The distal esophagus was normal. Biopsies were taken with a cold forceps for histology. Diffuse mildly erythematous mucosa without bleeding was found in the gastric antrum. Biopsies were taken with a cold forceps for histology. The examined duodenum was normal. Biopsies were taken with a cold forceps for histology. Impression: - Normal middle third of esophagus. Biopsied. - Small hiatal hernia. - Normal distal esophagus. Biopsied. - Erythematous mucosa in the antrum. Biopsied. - Normal examined duodenum. Biopsied. Recommendation: - Discharge patient to home. - Resume previous diet. - Continue present medications. - Telephone my office for pathology results in 1 week No findings that would seem to correlate with left upper quadrant pain Will await biopsy results. Procedure Code(s): --- Professional --- 90963, Esophagogastroduodenoscopy, flexible, transoral; with biopsy, single or multiple Diagnosis Code(s): --- Professional --- K44.9, Diaphragmatic hernia without obstruction or gangrene K31.89, Other diseases of stomach and duodenum R10.12, Left upper quadrant pain CPT copyright 2017 [employer]. All rights reserved. The codes documented in this report are preliminary and upon airset molder review may be revised to meet current compliance requirements. Omar Albrecht MD 12/05/2022 9:16:09 AM This report has been signed electronically. Number of Addenda: 0 Note Initiated On: 12/05/2022 8:40 AM
--- NOTE | 2022-12-05 09:16 | OP.CCLET_ITS ---
12/05/2022 Álvaro Purcell [address] [place] [address] Re : Upper GI endoscopy procedure for Logan Marroquin Dear Dr. Purcell This procedure was performed on November. My impressions and recommendations are as follows: Impressions : - Normal middle third of esophagus. Biopsied. - Small hiatal hernia. - Normal distal esophagus. Biopsied. - Erythematous mucosa in the antrum. Biopsied. - Normal examined duodenum. Biopsied. Recommendations : - Discharge patient to home. - Resume previous diet. - Continue present medications. - Telephone my office for pathology results in 1 week No findings that would seem to correlate with left upper quadrant pain Will await biopsy results. My findings are described in the full procedure note, which is enclosed. If I can be of further assistance, please feel free to contact me at Doctor phone number(s): Work: . Sincerely, Omar Albrecht MD 12/05/2022 9:16:09 AM This report has been signed electronically.
--- NOTE | 2022-12-05 09:20 | OP.COLON_ITS ---
Patient Name: Logan Marroquin Procedure Date: 12/05/2022 8:54 AM Date of : 1945 Age: 77 Procedure: Colonoscopy Indications: Abdominal pain in the left upper quadrant Providers: Omar Albrecht MD Referring MD: Omar Albrecht MD Patient Profile: Last Colonoscopy: January 2016. Complications: No immediate complications. Procedure: Pre-Anesthesia Assessment: - Prior to the procedure, a History and Physical was performed, and patient medications and allergies were reviewed. The patient's tolerance of previous anesthesia was also reviewed. The risks and benefits of the procedure and the sedation options and risks were discussed with the patient. All questions were answered, and informed consent was obtained. Prior Anticoagulants: The patient has taken no previous anticoagulant or antiplatelet agents. ASA Grade Assessment: II - A patient with mild systemic disease. After reviewing the risks and benefits, the patient was deemed in satisfactory condition to undergo the procedure. After I obtained informed consent, the scope was passed under direct vision. Throughout the procedure, the patient's blood pressure, pulse, and oxygen saturations were monitored continuously. The pediatric colonoscope was introduced through the anus and advanced to the cecum, identified by appendiceal orifice and ileocecal valve. The colonoscopy was performed without difficulty. The patient tolerated the procedure well. The quality of the bowel preparation was good. The ileocecal valve and the appendiceal orifice were photographed. Scope In: 8:55:31 AM Scope Withdrawal Time 0 hours 8 minutes 9 seconds Scope Out: 9:10:55 AM Total Procedure Duration Time 0 hours 15 minutes 24 seconds Findings: The digital rectal exam findings include non-thrombosed external hemorrhoids, non-thrombosed internal hemorrhoids, internal hemorrhoids that prolapse with straining, but spontaneously regress to the resting position (Grade II) and enlarged prostate. Multiple diverticula were found in the sigmoid colon and descending colon. The exam was otherwise without abnormality. Impression: - Non-thrombosed external hemorrhoids, non-thrombosed internal hemorrhoids, internal hemorrhoids that prolapse with straining, but spontaneously regress to the resting position (Grade II) and enlarged prostate found on digital rectal exam. - Diverticulosis in the sigmoid colon and in the descending colon. - The examination was otherwise normal. - No specimens collected. Recommendation: - Discharge patient to home. - Resume previous diet. - Continue present medications. - Repeat colonoscopy in 10 years for screening purposes. Procedure Code(s): --- Professional --- 48948, Colonoscopy, flexible; diagnostic, including collection of specimen(s) by brushing or washing, when performed (separate procedure) Diagnosis Code(s): --- Professional --- K64.1, Second degree hemorrhoids K64.4, Residual hemorrhoidal skin tags R10.12, Left upper quadrant pain N40.0, Benign prostatic hyperplasia without lower urinary tract symptoms K57.30, Diverticulosis of large intestine without perforation or abscess without bleeding CPT copyright 2017 [employer]. All rights reserved. The codes documented in this report are preliminary and upon children's literature professor review may be revised to meet current compliance requirements. Omar Albrecht MD 12/05/2022 9:20:34 AM This report has been signed electronically. Number of Addenda: 0 Note Initiated On: 12/05/2022 8:54 AM
--- NOTE | 2022-12-05 09:21 | OP.CCLET_ITS ---
12/05/2022 Álvaro Purcell [address] [place] [address] Re : Colonoscopy procedure for Logan Jimenezer Dear Dr. Purcell This procedure was performed on November. My impressions and recommendations are as follows: Impressions : - Non-thrombosed external hemorrhoids, non-thrombosed internal hemorrhoids, internal hemorrhoids that prolapse with straining, but spontaneously regress to the resting position (Grade II) and enlarged prostate found on digital rectal exam. - Diverticulosis in the sigmoid colon and in the descending colon. - The examination was otherwise normal. - No specimens collected. Recommendations : - Discharge patient to home. - Resume previous diet. - Continue present medications. - Repeat colonoscopy in 10 years for screening purposes. My findings are described in the full procedure note, which is enclosed. If I can be of further assistance, please feel free to contact me at Doctor phone number(s): Work: . Sincerely, Omar Albrecht MD 12/05/2022 9:20:34 AM This report has been signed electronically.
== END 2022-12-05 10:04 | disposition home or self-care (01) ==
LOC: EN 07:21 → AC 07:21
PROVIDERS: PCP Student in an Organized Health Care Education/Training Program; Referring Provider Surgery; Visit Provider Surgery
PROC: 0DJD8ZZ Inspection of Lower Intestinal Tract, Via Natural or Artificial Opening Endoscopic (ICD-10-PCS; CPT 45378; principal; 2022-12-05 08:25)
DX: K64.1 Second degree hemorrhoids (principal); K44.9 Diaphragmatic hernia without obstruction or gangrene; K57.30 Diverticulosis of large intestine without perforation or abscess without bleeding; K31.89 Other diseases of stomach and duodenum; K64.4 Residual hemorrhoidal skin tags; N40.0 Benign prostatic hyperplasia without lower urinary tract symptoms; R10.12 Left upper quadrant pain; I45.10 Unspecified right bundle-branch block; I25.10 Atherosclerotic heart disease of native coronary artery without angina pectoris; I10 Essential (primary) hypertension; E78.5 Hyperlipidemia, unspecified; E07.9 Disorder of thyroid, unspecified; K59.09 Other constipation; Z95.1 Presence of aortocoronary bypass graft; Z79.82 Long term (current) use of aspirin; Z79.899 Other long term (current) drug therapy; Z87.891 Personal history of nicotine dependence
CPT/HCPCS: 43239; 45378; 88305; 88313; 88342; J7120; J2405

== ENCOUNTER → 2022-12-23 | Outpatient (CLI) | payer MEDICARE, OTHER, SELFPAY | END | disposition home or self-care (01) | LOC: MTLAB 10:10 | PROVIDERS: PCP Student in an Organized Health Care Education/Training Program; Referring Provider Urology; Visit Provider Urology | DX: R30.0 Dysuria (principal) | CPT/HCPCS: 87077; 87086; 87088; 87186 ==

== ENCOUNTER 2023-11-04 15:41 | Inpatient (IN) | payer MEDICARE, OTHER, SELFPAY ==
[2023-11-04 15:54] VITALS: BP 138/58; PULSE 85; RESP 16; TEMP 37; O2SAT 92; BMI 29.2
[2023-11-04 16:14] VITALS: BMI 29.2
[2023-11-04] MEDS: Ensure Plus High Protein 120 ML LIQUID PO (18:39)
--- NOTE | 2023-11-04 19:52 | HP.PCM_ITS ---
[facility] - General General Date of Admission: 11/04/23 Date of Service: 11/04/23 Chief Complaint: Here for rehabilitation. HPI Narrative GERRI BENÍTEZ, is a 78 Male with past medical history significant for BPH s/p prostatectomy 10/21/2023, atrial fibrillation (on ASA), hypothyroidism, Hyperlipidemia, Hypertension, spinal stenosis with chronic back pain, CAD s/p CABG x 3 in 2018 on Aspirin. Patient was discharged from [facility] on 10/22/2023 on POD 1 after abdominal prostatectomy. Post operative course was uncomplicated. Patient was discharged with [address] He did not notice blood in his urine at home, but did have penile pain associated with the catheter. He was seen in outpatient urology on 10/28/2023 where his catheter was removed and he was instructed to increase fluid intake. On 10/29/2023, he presented to [facility] ED with complaints of fever (102.5), shaking, and night sweats. He went into septic shock and was started on pressors and transferred to [facility] for further evaluation and management. He was seen by urology. Had CBI placed. He underwent cystoscopy with evacuation of clots. CBI was discontinued. Hematuria improved. He is cleared by urology with the Caldera to follow-up as outpatient in 10-14 days. Urology recommended 3 days of antibiotics at the time of Caldera exchange. 11/04/2023 Admit to TCU with debility, here for rehabilitation, strengthening, prior to discharge home with . [facility] Medical History (Updated 11/04/23 @ 20:[address] Raman Neves MD) Vitamin B12 deficiency BPH (benign prostatic hyperplasia) Vitamin D deficiency Anxiety Thyroid disease Arthritis Prostate disease Restless legs Syncope History of hiatal hernia Gastric reflux History of irregular heartbeat Dysphagia Chronic back pain Right bundle branch block Hemothorax, left Postoperative atrial fibrillation Atherosclerosis of coronary artery of [place] heart without angina pectoris History of [place] thyroiditis HLD (hyperlipidemia) HTN (hypertension) Home Medications ?Medication ?Instructions ?Recorded ?Last Taken ?Type levothyroxine 137 mcg tablet 137 mcg PO DAILY thyroid 10/08/17 11/04/23 History aspirin 81 mg tablet,delayed 81 mg PO QDAY Heart [facility] 11/29/17 11/04/23 History release (Adult Low Dose Aspirin) fexofenadine 180 mg tablet 180 mg PO DAILY PRN ALLERGIES 04/14/18 Unknown History (Quynh Allergy) vitamin B complex (Complex B-100 1 tab PO DAILY supplement 04/14/18 Unknown History tablet,extended release) glucosamine 750 mg-MSM 60 1 tab PO DAILY Joints 10/20/18 11/04/23 History mg-chondroit 150 mg-hyaluron ac 1 mg tablet omega-3 fatty acids 1,000 mg 1,000 mg PO DAILY supplement 10/20/18 11/04/23 History capsule (Fish Oil Concentrate) cholecalciferol (vitamin D3) 100 1,000 unit PO DAILY supplement 10/21/22 11/04/23 History mcg (4,000 unit) capsule ascorbic acid (vitamin C) 500 mg 500 mg PO DAILY supplement 12/02/22 11/04/23 History capsule,extended release (Vitamin C) vitamin B6-vitamin E-magnesium 1 tab PO DAILY supplement 12/02/22 Unknown History tablet tamsulosin 0.4 mg capsule (Flomax) 0.4 mg PO DAILY bladder #30 caps 12/05/22 11/04/23 Rx tizanidine 2 mg tablet 4 mg PO Q6H PRN muscle spasm 09/29/23 Unknown History diazepam 2 mg tablet 2 mg PO QHS PRN muscle spasms 11/04/23 Unknown History fluconazole 200 mg tablet 400 mg PO FR yeast 11/04/23 Unknown History hydrocodone-acetaminophen 5-325mg 1 tab PO Q6H pain 11/04/23 Unknown History 5mg-325mg methylprednisolone 4 mg tablets in 4 mg PO DAILY PRN pain 11/04/23 Unknown History a dose pack triamcinolone acetonide 0.1 % applic topical BID PRN rash/itching 11/04/23 Unknown History topical cream Allergy/AdvReac Type Severity Reaction Status Date / Time latex Allergy Hives Verified 12/05/22 15:57 metoprolol AdvReac Severe Severe Verified 12/05/22 15:57 depression Sleizoy-RDS-DzY Reductase AdvReac Intermediate mylagias Verified 12/05/22 15:57 Inhibitor (Ksbiyqy-Jyy-Yvt Reductase Inhibitor) codeine AdvReac Nausea Verified 12/05/22 15:57 Family History Mother CAD (coronary artery disease) Father CAD (coronary artery disease) Surgical History (Updated 11/04/23 @ 20:[address] Raman Neves MD) History of prostatectomy Hx of colonoscopy History of esophagogastroduodenoscopy (EGD) Hx of left inguinal hernia repair History of left heart catheterization (~09/2017) History of lumpectomy of right breast History of cataract surgery H/O arthroscopy of left knee History of right inguinal hernia repair History of evacuation of hematoma (10/15/17) H/O coronary artery bypass surgery (10/14/17) Social History (Updated 11/04/23 @ 20:[address] Raman Neves MD) household members: spouse Smoking Status: Former smoker alcohol intake: current alcohol intake frequency: holidays/special occasions only substance use type: does not use ROS Constitutional Constitutional: Reports fatigue and weakness; Denies chills, fever(s) or weight gain ENT HEENT: Denies headache(s), nasal congestion or nasal discharge Cardiovascular Cardiovascular: Denies chest pain or palpitations Respiratory/Chest Respiratory/Chest: Denies cough, excessive phlegm production or shortness of breath with exertion Gastrointestinal Gastrointestinal: Denies abdominal pain, nausea or vomiting Genitourinary Genitourinary: Denies dysuria Musculoskeletal Musculoskeletal: Denies joint pain or joint swelling Integumentary Integumentary: Denies rash or wounds Neurologic Neurologic: Denies focal weakness, numbness or tingling Psychiatric Psychiatric: Denies anxiety, auditory hallucinations, depression, homicidal ideation or suicidal ideation Vital Signs Vital Signs Vital Signs: 11/04/23 15:54 Temperature 98.6 F Temperature Source Temporal Pulse Rate 85 Respiratory Rate 16 Blood Pressure 138/58 H Blood Pressure Mean 84 Blood Pressure Source Monitor Blood Pressure Position Semi-Fowlers Blood Pressure Location Left Arm Pulse Ox 92 Oxygen Delivery Method Room Air Weight Weight: 89.721 kg Body Mass Index (BMI) 29.2 Physical Exam Const alert General Appearance: cooperative HEENT normocephalic Eyes PERRL and EOMs intact bilaterally Neck supple, no JVD and no carotid bruits Resp normal respiratory effort, normal air movement and clear to auscultation bilaterally Cardio regular rate and regular rhythm GI normal to inspection, nondistended, normoactive bowel sounds, non-tender and non-distended Bladder / Kidney Exam: catheter in place urethral Extremity normal capillary refill General Extremity: Negative for edema Skin no rashes or lesions noted General Skin Exam: no breakdown Psych affect normal Appearance: appropriate Assessment & Plan Assessment/Plan (1) Debility: (2) Septic shock: (3) Urinary tract infection: (4) Hematuria: (5) Coronary artery disease: (6) Vitamin D deficiency: (7) Anxiety: (8) Hypothyroidism: (9) Allergic rhinitis: (10) HLD (hyperlipidemia): QUALIFIERS: Hyperlipidemia type: pure hypercholesterolemia Qualified Code(s): E78.00 - Pure hypercholesterolemia, unspecified; E78.0 - Pure hypercholesterolemia (11) BPH (benign prostatic hyperplasia): (12) Muscle spasm: (13) Leg cramps: PLAN: Plan 78 year old male with below past medical history significant for recent abdominal prostatectomy hospitalized for septic shock 2/2 UTI, complicated by hematuria, admitted to TCU with debility, here for rehabilitation, strengthening, prior to discharge home with . * Debility - PT/OT. * Pain - [place] 5/325mg 1 tablet q6 prn pain (1-10). * Bowel - senna/colace 1 tablet bid, Dulcolax 10mg pr daily prn. * Adult immunization - Administer pneumonia vaccine, covid vaccine, flu vaccine as appropriated. * DVT prophylaxis - Hold, recent hematuria. * Shortness of breath - Albuterol 2 puffs q6 prn. * Vitamin C deficiency - Vitamin C 500mg daily. * Coronary artery disease - Aspirin 81mg daily. * UTI - Cefdinir 300mg q12 thru 11/07/2023. * Vitamin D deficiency - D3 25mcg daily. 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 * Nutrition - Ensure Plus 120ml tidcm. * Fungal infection - Fluconazole 400mg qweek. * Tinea Corporis - Ketoconazole cream topical daily prn. * Hypothyroidism - Levothyroxine 137mcg daily. * Allergic rhinitis - Loratadine 10mg daily. * Hyperlipidemia - [place] 3 1 grm daily. * BPH - Tamsulosin 0.4mg daily. * Muscle spasm - Tizanidine 4mg q6 prn. * Skin irritation - Triamcinolone topical bid prn. * Leg cramps - Vitamin B complex 1 capsule daily.
[2023-11-04 20:00] VITALS: RESP 15
[2023-11-04] MEDS: Cefdinir 300 MG Capsule PO (22:40)
--- NOTE | 2023-11-05 00:24 | NURSING ---
This nurse replaced leg bag to catheter with caldera bag d/t urinary frequency. This nurse educated patient that it will not need to be emptied as frequent, patient verbalized understanding and reported he should be able to sleep better without frequent interruptions to empty caldera.
[2023-11-05] MEDS: HYDROcodone Bitartrate/Apap 5/325 Tablet PO (05:10)
[2023-11-05] MEDS: Levothyroxine 137 MCG Tablet PO (05:10)
[2023-11-05 05:59] LABS: Hematocrit 31.4 % (40-54); Hemoglobin 10.2 g/dL (13.0-16.5); Mean Corp Hgb Conc 32.5 g/dL (32-36); Mean Corpuscular Hgb 30.4 pg (27.0-32.0); Mean Corpuscular Volume 93.5 fL (80-94); Mean Platelet Vol. 9.9 fl (6.2-12.0); POSITIVE COUNT YES; POSITIVE MORPHOLOGY YES; Platelet Count 266 K/mm3 (150-450); RBC Distribution Width CV 13.6 % (11.6-14.6); RBC Distribution Width SD 46.4 fl (35.1-43.9); Red Blood Count 3.36 M/mm3 (4.6-6.2)
[2023-11-05 06:03] LABS: Differential Indicated MANUAL DIFF
[2023-11-05 06:34] LABS: Anion Gap 7 (5-15); BUN 9 mg/dL (7-18); BUN/Creat Ratio 12.3 RATIO (10-20); Calcium,Total 7.8 mg/dL (8.5-10.1); Chloride 106 mmol/L (98-107); Creatinine, Serum 0.73 mg/dL (0.70-1.30); EST Glomerular Filtration Rate 109 mL/min (>60); Est Glom Filt Rate - Afr Amer 132 mL/min (>60); Estimated Creatinine Clearance 81.57 ml/min; Glucose 112 mg/dL (74-106); Potassium 3.1 mmol/L (3.5-5.1); Sodium Level 140 mmol/L (136-145)
[2023-11-05] MEDS: Vitamin B Comp W-C Capsule 1 CAP PO (07:55)
[2023-11-05] MEDS: Ensure Plus High Protein 120 ML LIQUID PO ×3 (07:55→17:20)
[2023-11-05] MEDS: Ascorbic Acid 500 MG Tablet PO (07:55)
[2023-11-05] MEDS: Aspirin E.C. 81 MG Tablet PO (07:55)
[2023-11-05] MEDS: Omega-3 Acid Ethyl Esters 1 GM Capsule PO (07:55)
[2023-11-05] MEDS: Cholecalciferol (VIT D3) 25 MCG TABLET (1,000 UNITS) PO (07:55)
[2023-11-05] MEDS: Cefdinir 300 MG Capsule PO ×2 (07:55→21:07)
[2023-11-05] MEDS: Potassium Chloride Oral Tablet 20 MEQ 60 MEQ PO (07:55)
[2023-11-05] MEDS: Calcium Carbonate 500 MG Tablet PO (08:14)
[2023-11-05 08:17] VITALS: BP 159/70; PULSE 84; RESP 16; TEMP 37.3; O2SAT 92
[2023-11-05 08:37] LABS: Eosinophil 1 % (0-5); Lymphocyte 9 % (19-41); Metamyelocyte 3 % (0-1); Monocyte 4 % (0-10); Myelocyte 2 % (0-0); Neutrophil-Band 1 % (0-5); Neutrophil-Segmented 80 % (47-70); Total Cells Counted 100 (MANUAL DIFF)
[2023-11-05 08:38] LABS: Absolute Neutrophil Count 11.8 X10^3/uL (2.0-7.7); Platelet Estimate ADEQUATE (ADEQ); Red Cell Morphology NORM C+C NORMAL (NORM C&C)
[2023-11-05 08:39] LABS: Pathologist Review May foll
--- NOTE | 2023-11-05 10:23 | NURSING ---
Discussed f/u with surgeon Dr. Hines, patient kept stressing that he wanted to know the nature of the appt, and if caldera will be removed. RN called and left VM w/ office.
[2023-11-05] MEDS: Tuberculin,Purif.prot.deriv. 50 TU/ML Vial 0.1 ML ID (11:49)
[2023-11-05] MEDS: Acetaminophen 500 MG Tablet 1000 MG PO ×2 (14:26→23:04)
[2023-11-05 15:24] LABS: White Blood Count 14.6 K/mm3 (4.4-11.0)
--- NOTE | 2023-11-05 17:51 | NURSING ---
pt requesting flomax be d'cd since he had a prostatectomy done on 10/20, also c/o RT calf pain, edema noted w/out redness. pt also mentioned that he was on a water pill at home dyazide. Dr ramos updated on all requests from pt, new orders for dopper, dyazide daily and flomax discontinued.
[2023-11-05 18:04] VITALS: TEMP 37.4
[2023-11-05 21:05] VITALS: RESP 15
[2023-11-05] MEDS: Senna/Docusate Sodium 1 Tablet PO (21:07)
[2023-11-06] MEDS: Levothyroxine 137 MCG Tablet PO (05:28)
[2023-11-06 05:44] VITALS: RESP 16
[2023-11-06 06:03] LABS: Hematocrit 30.3 % (40-54); Mean Corpuscular Hgb 31.3 pg (27.0-32.0); Mean Corpuscular Volume 94.7 fL (80-94); Mean Platelet Vol. 9.9 fl (6.2-12.0); POSITIVE COUNT YES; POSITIVE MORPHOLOGY YES; Platelet Count 329 K/mm3 (150-450); RBC Distribution Width CV 13.9 % (11.6-14.6); RBC Distribution Width SD 46.6 fl (35.1-43.9)
[2023-11-06 06:21] LABS: Differential Indicated MANUAL DIFF
[2023-11-06 06:34] LABS: Anion Gap 5 (5-15); BUN 8 mg/dL (7-18); Calcium,Total 7.8 mg/dL (8.5-10.1); Chloride 107 mmol/L (98-107); Creatinine, Serum 0.72 mg/dL (0.70-1.30); EST Glomerular Filtration Rate 111 mL/min (>60); Est Glom Filt Rate - Afr Amer 134 mL/min (>60); Estimated Creatinine Clearance 81.57 ml/min; Glucose 104 mg/dL (74-106); Potassium 3.5 mmol/L (3.5-5.1); Sodium Level 140 mmol/L (136-145)
[2023-11-06 08:19] LABS: Lymphocyte 9 % (19-41); Metamyelocyte 1 % (0-1); Monocyte 7 % (0-10); Myelocyte 3 % (0-0); Neutrophil-Band 2 % (0-5); Neutrophil-Segmented 76 % (47-70); Plasma Cell 2 %; Platelet Estimate ADEQUATE (ADEQ); Red Cell Morphology NORM C+C NORMAL (NORM C&C); Total Cells Counted 100 (MANUAL DIFF)
[2023-11-06 08:20] VITALS: BP 152/63; PULSE 89; RESP 16; TEMP 36.7; O2SAT 93
[2023-11-06 08:20] LABS: Absolute Neutrophil Count 10.9 X10^3/uL (2.0-7.7)
[2023-11-06] MEDS: Aspirin E.C. 81 MG Tablet PO (08:25)
[2023-11-06] MEDS: Vitamin B Comp W-C Capsule 1 CAP PO (08:25)
[2023-11-06] MEDS: Omega-3 Acid Ethyl Esters 1 GM Capsule PO (08:26)
[2023-11-06] MEDS: Senna/Docusate Sodium 1 Tablet PO ×2 (08:26→21:20)
[2023-11-06] MEDS: Cefdinir 300 MG Capsule PO ×2 (08:26→21:20)
[2023-11-06] MEDS: Ascorbic Acid 500 MG Tablet PO (08:26)
[2023-11-06] MEDS: Cholecalciferol (VIT D3) 25 MCG TABLET (1,000 UNITS) PO (08:27)
[2023-11-06] MEDS: Triamterene 37.5MG/Hctz 25MG Capsule 1 CAP PO (08:29)
[2023-11-06] MEDS: Ensure Plus High Protein 120 ML LIQUID PO ×2 (08:29→13:03)
[2023-11-06] MEDS: Calcium Carbonate 500 MG Tablet PO (08:30)
--- NOTE | 2023-11-06 16:03 | NURSING ---
Updated Dr. John on venous doppler results of right leg.
--- NOTE | 2023-11-06 16:24 | PCM.PN.DRR ---
TCU RX Drug Regimen Review Subjective/Objective Subjective/Objective: Subjective: TCU admission note. 78 year old male with below past medical history significant for recent abdominal prostatectomy hospitalized for septic shock 2/2 UTI, complicated by hematuria, admitted to TCU with debility, here for rehabilitation, strengthening, prior to discharge home with . Objective: Allergies latex Allergy (Verified 12/05/22 15:57) Hives metoprolol Adverse Reaction (Severe, Verified 12/05/22 15:57) Severe depression Ccjpeap-MYL-DvK Reductase Inhibitor (Idnrfjn-Tjk-Ouh Reductase Inhibitor) Adverse Reaction (Intermediate, Verified 12/05/22 15:57) mylagias codeine Adverse Reaction (Verified 12/05/22 15:57) Nausea Current Medications Generic Name Dose Route Start Last Admin Trade Name Freq PRN Reason Stop Dose Admin Acetaminophen 1,000 mg 11/05/23 07:46 11/05/23 23:04 Acetaminophen 500 Mg Tablet PO 1,000 mg Q6H PRN PRN Administration Pain Score 1-10 Albuterol Sulfate 2 puff 11/04/23 16:52 Albuterol Ih (6.7 Gm) 1 Puff Inhaler INHALATION Q6H PRN WHEEZING Ascorbic Acid 500 mg 11/05/23 10:00 11/06/23 08:26 Ascorbic Acid 500 Mg Tablet PO 500 mg DAILY DORI Administration Aspirin 81 mg 11/05/23 08:00 11/06/23 08:25 Aspirin E.C. 81 Mg Tablet PO 81 mg DAILYCM DORI Administration Bisacodyl 10 mg 11/04/23 20:16 Bisacodyl 10 Mg Suppository RC DAILY PRN Constipation Calcium Carbonate 500 mg 11/04/23 20:55 11/06/23 08:30 Calcium Carbonate 500 Mg Tablet PO 500 mg Q4H PRN PRN Administration INDIGESTION Cefdinir 300 mg 11/04/23 22:00 11/06/23 08:26 Cefdinir 300 Mg Capsule PO 11/07/23 22:01 300 mg Q12 DORI Administration Cholecalciferol 25 mcg 11/05/23 10:00 11/06/23 08:27 Cholecalciferol (Vit D3) 25 Mcg Tablet (1,000 Units) PO 25 mcg DAILY DORI Administration Diazepam 2 mg 11/04/23 16:45 Diazepam 2 Mg Tablet PO QHS PRN PRN MUSCLE SPASMS Fluconazole 400 mg 11/07/23 10:00 Fluconazole 100 Mg Tablet PO Fr@1000 [facility] Ketoconazole 1 applic 11/04/23 16:31 Ketoconazole Cream TOPICAL DAILY PRN seborrheic dermatitis Protocol Levothyroxine Sodium 137 mcg 11/05/23 06:00 11/06/23 05:28 Levothyroxine 137 Mcg Tablet PO 137 mcg DAILY@0600 DORI Administration Loratadine 10 mg 11/04/23 16:50 Loratadine 10 Mg Tablet PO DAILY PRN ALLERGIES Multivitamins 1 cap 11/05/23 08:00 11/06/23 08:25 Vitamin B Comp W-C Capsule PO 1 cap DAILYCM DORI Administration Nutritional Formula (Lactose Free) 120 ml 11/04/23 17:45 11/06/23 13:03 Ensure Plus High Protein 120 Ml Liquid PO 120 ml TIDCM [facility] Administration Lfvxy-6-Vlao Ethyl Esters 1 gm 11/05/23 10:00 11/06/23 08:26 Elmore-3 Acid Ethyl Esters 1 Gm Capsule PO 1 gm DAILY DORI Administration Senna/Docusate Sodium 1 tablet 11/04/23 22:00 11/06/23 08:26 Senna/Docusate Sodium 1 Tablet PO 1 tablet BID DORI Administration Tizanidine HCl 4 mg 11/04/23 16:33 Tizanidine Hcl 2 Mg Tablet PO Q6H PRN PRN muscle spasm Triamcinolone Acetonide 1 applic 11/04/23 16:33 Triamcinolone Acetonide 0.1% Cream 15 Gm TOPICAL BID PRN rash/itching Protocol Triamterene/Hydrochlorothiazide 1 cap 11/06/23 10:00 11/06/23 08:29 Triamterene 37.5mg/Hctz 25mg Capsule PO 1 cap DAILY DORI Administration Protocol Tuberculin PPD 0.1 ml 11/12/23 10:00 Tuberculin,Purif.Prot.Deriv. 50 Tu/Ml Vial ID 11/12/23 10:01 X1 ONE Problem List Leg cramps (Acute) Muscle spasm (Acute) Allergic rhinitis (Acute) Hypothyroidism (Acute) Coronary artery disease (Acute) Hematuria (Acute) Urinary tract infection (Acute) Septic shock (Acute) Debility (Acute) BPH (benign prostatic hyperplasia) (Acute) Vitamin D deficiency (Acute) Anxiety (Acute) HLD (hyperlipidemia) (Chronic) Vital Signs Temp Pulse Resp BP Pulse Ox O2 Del Method 98.1 F 89 16 152/63 H 93 Room Air 11/06/23 08:20 11/06/23 08:20 11/06/23 08:20 11/06/23 08:20 11/06/23 08:20 11/06/23 08:20 Oxygen Delivery Method Room Air Weight: 89.721 kg Body Mass Index (BMI) 29.2 Sodium 140 mmol/L (136-145) 11/06/23 05:12 Potassium 3.5 mmol/L (3.5-5.1) 11/06/23 05:12 Chloride 107 mmol/L (98-107) 11/06/23 05:12 Carbon Dioxide 28.0 mmol/L (21.0-32.0) 11/06/23 05:12 Anion Gap 5 (5-15) 11/06/23 05:12 BUN 8 mg/dL (7-18) 11/06/23 05:12 Creatinine 0.72 mg/dL (0.70-1.30) 11/06/23 05:12 Est GFR (MDRD) Af Amer 134 mL/min (>60) 11/06/23 05:12 Est GFR (MDRD) Non-Af 111 mL/min (>60) 11/06/23 05:12 BUN/Creatinine Ratio 11.0 RATIO (10-20) 11/06/23 05:12 Glucose 104 mg/dL (74-106) 11/06/23 05:12 Assessment/Plan: 1. Pain: acetaminophen 1000 mg PO Q6H PRN pain. The patient has used 2 PRN doses of acetaminophen so far this admission for pain scores of 6, both doses appear to have alleviated the patient's pain. Please continue to monitor for PRN medication usage, pain scores, and LFTs (AST/ALT = 16/32 U/L on 04/22/12). 2. Bowel: senna/docusate 1 tablet PO BID, bisacodyl 10 mg 1 suppository MO PRN constipation. The patient has not required any PRN bisacodyl so far this admission, and the patient's last bowel movement was 11/06/23. Please continue to monitor for bowel movements, PRN medication usage and for diarrhea and constipation. 3. UTI: cefdinir 300 mg PO BID through 11/07/23. Please continue to monitor for s/s of worsening infection such as recurrent dysuria, frequency urgency, fevers (most recent temp = 98.1F), WBC count (WBC = 14.0 K/mm3 on 11/06/23), renal function (serum creatinine = 0.72 mg/dL with creatinine clearance ~ 82 mL/min on 11/06/23), and diarrhea. 4. Fungal infection: fluconazole 400 mg PO every week. Please continue to monitor for resolution of fungal infection, and for diarrhea. 5. Hypothyroidism: levothyroxine 137 mcg PO daily. Please continue to monitor for s/s of hypo/hyperthyroidism as well as thyroid hormone levels (TSH = 0.83 uIU/mL with T4 = 1.22 ng/dL on 10/08/17). Please consider re-checking a TSH level as the patient has not had one in > 1 year. 6. Coronary artery disease: aspirin 81 mg PO daily. Please continue to monitor for chest pain, shortness of breath, platelet count (Plt = 329 k/mm3 on 11/06/23), and for s/s of bleeding as well as for GI distress with aspirin administration. 7. Hypertension: triamterene/hydrochlorothiazide 37.5-25 mg capsule Po daily. Please continue to monitor blood pressures (recent range = 138-159/58-70 mmHg), renal function (serum creatinine = 0.72 mg/dL with creatinine clearance ~ 82 mL/min on 11/06/23), sodium levels (Na = 140 mmol/L on 11/06/23), potassium levels (K = 3.5 mmol/L on 11/07/23), and for s/s of dehydration. The patients blood pressures have remained elevated in spite of adding triamterene/hydrochlorothiazide. Please consider adding an agent such as amlodipine 5 mg PO daily to the patient's regiment to help better control their blood pressures. 8. Hyperlipidemia: omega 3 acid ethyl esters 1 gram PO daily. Please continue to monitor lipid levels (cholesterol = 229 mg/dL with LDL = 172 mg/dL and TG = 69 mg/dL on 10/09/17), as well as for GI distress with omega-3 administration. Please consider re-ordering lipid levels as the patient has not had them completed in > 1 year. 9. Muscle spasms: tizanidine 4 mg PO Q6H PRN muscle spasms. The patient has not required any PRN doses of tizanidine so far this admission. Please continue to monitor for muscle spasms, PRN tizanidine usage, LFTs (AST/ALT = 16/32 U/L on 04/22/12), for hypotension, sedation, dry mouth, dizziness and drowsiness. 10. Allergic rhinitis: loratadine 10 mg PO daily PRN allergies. The patient has not required any PRN loratadine doses so far this admission. Please continue to monitor for PRN medication usage, allergy symptoms, dry mouth, dry eyes, constipation and drowsiness. 11. Shortness of breath: albuterol inhaler 2 puffs Q6H PRN wheezing. The patient has not required any PRN doses of albuterol so far this admission. Please continue to monitor for PRN medication usage, wheezing, shortness of breath and palpitations. 12. Vitamin C/D deficiency: ascorbic acid 500 mg PO daily, cholecalciferol 25 mcg PO daily. Please continue to monitor for s/s fo vitamin C and vitamin D deficiency as well as vitamin D levels (no recent vitamin D levels). Please consider obtaining a vitamin D level as the patient does not have a recent level documented. 13. Indigestion: calcium carbonate 500 mg PO Q4H PRN indigestion. The patient has used 2 doses of calcium carbonate so far this admission. Please continue to monitor for PRN medication usage, indigestion and calcium levels (Ca = 7.8 mg/dL on 11/06/23). 14. Tinea corporis: ketoconazole cream 1 application topically daily PRN Seborrheic Dermatitis. The patient has not used any doses of ketoconazole so far this admission. Please continue to monitor for seborrheic dermatitis and tinea corporis resolution. 15. Skin irritation: triamcinolone 1 application topically BID PRN rash/itching. The patient has not required any PRN triamcinolone doses so far this admission. Please continue to monitor for rash/itching and PRN medication administration. 15. Leg cramps: vitamin B complex with C 1 capsule PO daily with a meal. Please continue to monitor for leg cramps. 16. Nutrition: Ensure plus high protein 120 mL PO TID with meals. Please continue to monitor overall nutritional status. Assessment/Plan for indications treated with psychotropic medications: 1. Anxiety: diazepam 2 mg PO QHS PRN anxiety. Please see provider notes regarding stable chronic long-term use GDR not recommended. The patient has not required any PRN doses of diazepam so far this admission. Please continue to monitor for anxiety, PRN medication usage, drowsiness, dizziness, rash and confusion. Medical chart and medication regimen reviewed. The following medication irregularities or issues were identified: 1. Hypothyroidism: levothyroxine 137 mcg PO daily. Please consider re-checking a TSH level as the patient has not had one in > 1 year. 2. Hypertension: triamterene/hydrochlorothiazide 37.5-25 mg capsule Po daily. The patients blood pressures have remained elevated in spite of adding triamterene/hydrochlorothiazide. Please consider adding an agent such as amlodipine 5 mg PO daily to the patient's regiment to help better control their blood pressures. 3. Hyperlipidemia: omega 3 acid ethyl esters 1 gram PO daily. Please consider re-ordering lipid levels as the patient has not had them completed in > 1 year. 4. Vitamin C/D deficiency: ascorbic acid 500 mg PO daily, cholecalciferol 25 mcg PO daily. Please consider obtaining a vitamin D level as the patient does not have a recent level documented. Date Date of Note:: 11/06/23
--- NOTE | 2023-11-06 16:43 | PN_ITS ---
Subjective Subjective Asked to see patient for swelling of his legs and DVT. Temp last night at 1800 was 9.4. Temp this morning is 98.1. Systolic blood pressure is mildly elevated but the diastolics are within goal. Heart rate is within normal limits. Pulse ox is 92 to 93% on room air. All lab drawn today was personally reviewed. The white blood cell count is elevated at 14 which is down from 14.6 yesterday. Hemoglobin is stable at 10. Platelets are within normal limits. Sodium is 140 and the potassium is 3.5, up from 3.1 yesterday. BUN is stable at 8 and the creatinine is stable at 0.72. Calcium is low at 7.8 and no albumin has been checked. 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 He had not been getting a diuretic prior to transfer to TCU. No hx of CHF. Venous US of the RLE today reportedly showed clot in the superficial saphenous vein in the gastrocnemius vein. He was apparently not on pharmacologic DVT prophylaxis at the previous hospital because of bleeding complications. He has no BOB hose on. He denies any history of DVT or pulmonary embolism in the past. He has never been diagnosed with cancer. He denies any family history of venous thromboembolism. He denies chest pain, palpitations, shortness of breath, hemoptysis. He is not on DVT prophylaxis. He had previously been on heparin at the other hospital but it was discontinued for hematuria? He is c/o swelling in the scrotum and the legs. He has had some pain in the R calf. Logan is concerned about the swelling in his legs and especially in his scrotum. He denies chest pain, shortness of breath, hemoptysis, cough, lightheadedness, suprapubic pain, nausea/vomiting. He has some right calf pain. Objective Data Objective Data Vital Signs: Vital Signs Temp Pulse Resp BP Pulse Ox O2 Del Method 98.1 F 89 16 152/63 H 93 Room Air 11/06/23 08:20 11/06/23 08:20 11/06/23 08:20 11/06/23 08:20 11/06/23 08:20 11/06/23 08:20 Oxygen Delivery Method Room Air Weight: 197 lb 12.8 oz Body Mass Index (BMI) 29.2 Intake & Output: Intake and Output for Last 24 Hours 11/04/23 11/05/23 11/06/23 23:59 23:59 23:59 Intake Total 120 / 120 560 / 560 360 / 360 Output Total 400 / 400 1200 / 1200 2675 / 2675 Balance -280 / -280 -640 / -640 -2315 / -2315 Lab / Micro Data 11/06/23 05:12 11/07/23 05:41 Labs: Laboratory Results - last 24 hr 11/06/23 05:12: WBC 14.0 H, RBC 3.20 L, Hgb 10.0 L, Hct 30.3 L, MCV 94.7 H, MCH 31.3, MCHC 33.0, RDW Std Deviation 46.6 H, RDW Coeff of Alysha 13.9, Plt Count 329, MPV 9.9, Neut % (Auto) Not Reportable, Absolute Neuts (auto) 10.9 H, Absolute Lymphs (auto) 1.30, Total Counted 100, Neutrophils % (Manual) 76 H, Band Neutrophils % 2, Lymphocytes % (Manual) 9 L, Monocytes % (Manual) 7, Metamyelocytes % 1, Myelocytes % 3 H, Plasma Cell % (Manual) 2, Diff Path Review October, Platelet Estimate ADEQUATE, RBC Morphology NORM C+C, Sodium 140, Potassium 3.5, Chloride 107, Carbon Dioxide 28.0, Anion Gap 5, BUN 8, Creatinine 0.72, Estim Creat Clear Calc 81.57, Est GFR (MDRD) Af Amer 134, Est GFR (MDRD) Non-Af 111, BUN/Creatinine Ratio 11.0, Glucose 104, Calcium 7.8 L Physical Exam Const alert, oriented x3 and no apparent distress General Appearance: cooperative Orientation / Consciousness: Negative for confused Resp normal respiratory effort, normal air movement and clear to auscultation bilaterally Resp Narrative: Lying flat in bed with no shortness of breath. Effort and Inspection: Negative for tachypneic Cardio regular rate, regular rhythm, no rub and no gallops Cardio Narrative: Frequent ectopy. Logan tells me this is normal for him and he has had Holter monitors and evaluations in the past but has had no history of atrial fibrillation. GI normal to inspection, nondistended, normoactive bowel sounds, soft to palpation and non-tender GI Narrative: No guarding with palpation. Surgical incisions healing with no dehiscence, no lisa-incisional erythema and no discharge. There is no pitting edema in the flanks. Extremity Extremity Narrative: 4+ pitting edema up to the posterior thighs. Some pain in the right calf. There is no increased warmth to touch in the right calf and no redness. Skin Rashes: no rashes Neuro CN's II-XII intact bilaterally and no focal motor deficits Psych thought process normal, cooperative and affect normal Appearance: appropriate Attitude: No agitated Assessment & Plan Assessment/Plan (1) Urinary tract infection: QUALIFIERS: Urinary tract infection type: acute pyelonephritis Q ualified Code(s): N10 - Acute pyelonephritis PLAN: causing septic shock (2) Debility: (3) Peripheral edema: (4) Hypocalcemia: (5) Acute DVT (deep venous thrombosis): PLAN: Right soleus vein. Also with superficial thrombophlebitis in the right small saphenous vein. Recent surgery and previous hospital was holding anticoagulation due to hematuria which has resolved. (6) Acute blood loss anemia: (7) Hypokalemia: PLAN: Plan 1. Check a CMP, TSH and mag in the AM. 2. Supplement the potassium and keep it around 4. It is 3.5 currently. 3. Recheck a venous ultrasound of the bilateral lower extremities on Friday to determine if there has been propagation of the clot. Patient was advised if he experiences any palpitations, sudden onset shortness of breath or chest pain he is to notify the nurse immediately. 4. Obtain the pathology report, discharge summary and the last 2 progress notes from [facility]. 5. Hold hydrochlorothiazide and give Lasix 40 mg p.o. today Charges/Coding Visit Charges Inpatient E&M: 17541 SNF Subs L2
--- NOTE | 2023-11-06 17:52 | NURSING ---
Faxed medical release of information to [facility] @[phone] John request to obtain patient medical records as ordered.
[2023-11-06 18:27] VITALS: BP 159/65
[2023-11-06] MEDS: Furosemide 40 MG Tablet PO (18:28)
[2023-11-06] MEDS: Potassium Chloride Oral Tablet 20 MEQ PO (18:28)
[2023-11-06 20:07] VITALS: TEMP 37.4
[2023-11-06] MEDS: Potassium Chloride Oral Tablet 20 MEQ 40 MEQ PO (21:20)
[2023-11-06 21:35] VITALS: RESP 18; TEMP 37.1
[2023-11-07] MEDS: Acetaminophen 500 MG Tablet 1000 MG PO (00:19)
[2023-11-07] MEDS: Levothyroxine 137 MCG Tablet PO (06:23)
[2023-11-07 06:32] LABS: ALB/GLOB Ratio 0.7 RATIO (0.9-2.4); AST(SGOT) 24 U/L (15-37); Alanine Aminotransfer ALT/SGPT 27 U/L (16-61); Albumin, Serum 2.1 g/dL (3.2-5.0); Alkaline Phosphatase 60 U/L (45-117); Anion Gap 4 (5-15); BUN 8 mg/dL (7-18); BUN/Creat Ratio 10.1 RATIO (10-20); Calcium,Total 7.9 mg/dL (8.5-10.1); Chloride 106 mmol/L (98-107); EST Glomerular Filtration Rate 99 mL/min (>60); Est Glom Filt Rate - Afr Amer 120 mL/min (>60); Estimated Creatinine Clearance 81.57 ml/min; Glucose 115 mg/dL (74-106); Magnesium 2.1 mg/dL (1.6-2.6); Protein, Total 5.1 g/dL (6.4-8.2); Sodium Level 139 mmol/L (136-145); Thyroid Stim Hormone (TSH) 5.58 uIU/mL (0.358-3.74)
[2023-11-07 06:42] VITALS: TEMP 37.2
[2023-11-07] MEDS: Ensure Plus High Protein 120 ML LIQUID PO ×3 (07:47→19:34)
[2023-11-07] MEDS: Aspirin E.C. 81 MG Tablet PO (07:50)
[2023-11-07] MEDS: Fluconazole 100 MG Tablet 400 MG PO (07:51)
[2023-11-07] MEDS: Senna/Docusate Sodium 1 Tablet PO ×2 (07:52→20:33)
[2023-11-07] MEDS: Cefdinir 300 MG Capsule PO ×2 (07:52→20:33)
[2023-11-07] MEDS: Omega-3 Acid Ethyl Esters 1 GM Capsule PO (07:52)
[2023-11-07] MEDS: Ascorbic Acid 500 MG Tablet PO (07:52)
[2023-11-07] MEDS: Cholecalciferol (VIT D3) 25 MCG TABLET (1,000 UNITS) PO (07:53)
[2023-11-07 09:33] LABS: Pathologist Review Reviewed
--- NOTE | 2023-11-07 09:37 | PN_ITS ---
Subjective Subjective Temp last night at 8:00 was 99.4. It has been elevated in the evening for the past 2 nights. Vital signs are stable, systolic is mildly elevated in the 150s. Heart rate is within normal limits Maintaining appropriate oxygen saturation on room air Fluid balance on 11/06/2023 after 40 mg of Lasix is -2089. Overnight he was - 3800. All lab today was personally reviewed. Sodium is 139 and the potassium is 4 today. BUN is stable at 8 and the creatinine is 0.8 which is within his baseline. Magnesium and phosphorus are within normal limits. LFTs are normal. The calcium is 7.9 with an albumin of 2.1. Calcium corrected for hypoalbuminemia is 9.4 which is within normal limits. TSH is increased at 5.58 and the vitamin D level is pending. TElls me that his scrotum is much smaller today. He denies lightheadedness. Denies increased palpitations, CP, shortness of breath, nausea/vomiting, suprapubic pain, diarrhea/constipation. Still with some R calf pain. I reviewed records we received from the previous hospital. The severe hematuria occurred due to rapid decompression of the bladder and was treated with a three- way Dye and continuous bladder irrigation. The ureter continues to be pale yellow and clear since arrival on TCU. There was no path report included in the records we received. Objective Data Objective Data Vital Signs: Vital Signs Temp Pulse Resp BP Pulse Ox O2 Del Method 98.9 F 89 18 159/65 H 93 Room Air 11/07/23 06:42 11/06/23 08:20 11/06/23 21:35 11/06/23 18:27 11/06/23 08:20 11/06/23 08:20 Oxygen Delivery Method Room Air Weight: 197 lb 12.8 oz Body Mass Index (BMI) 29.2 Intake & Output: Intake and Output for Last 24 Hours 11/05/23 11/06/23 11/07/23 23:59 23:59 23:59 Intake Total 560 / 560 585 / 585 Output Total 1200 / 1200 2675 / 3375 3800 / 3800 Balance -640 / -640 -2090 / -2790 -3800 / -3800 Lab / Micro Data 11/06/23 05:12 11/07/23 05:41 Labs: Laboratory Results - last 24 hr 11/06/23 05:12: Diff Path Review Reviewed 11/07/23 05:41: Sodium 139, Potassium 4.0, Chloride 106, Carbon Dioxide 29.0, A nion Gap 4 L, BUN 8, Creatinine 0.80, Estim Creat Clear Calc 81.57, Est GFR (MDRD) Af Amer 120, Est GFR (MDRD) Non-Af 99, BUN/Creatinine Ratio 10.1, Glucose 115 H, Calcium 7.9 L, Phosphorus 3.0, Magnesium 2.1, Total Bilirubin 0.70, AST 24, ALT 27, Alkaline Phosphatase 60, Total Protein 5.1 L, Albumin 2.1 L, Globulin 3.0, Albumin/Globulin Ratio 0.7 L, TSH 5.58 H Physical Exam Const alert, oriented x3 and no apparent distress Constitutional Narrative: Smiling and talkative. Making good eye contact. General Appearance: cooperative Resp clear to auscultation bilaterally Cardio regular rate, regular rhythm, no rub and no gallops Cardio Narrative: ectopy is less frequent today. GI normal to inspection, nondistended, normoactive bowel sounds, soft to palpation and non-tender GI Narrative: No guarding with light palpation Extremity Extremity Narrative: Scrotal and LE edema is much better today. There is no longer any pitting edema of the posterior thighs. LLE edema of the foot and the distal LE. The swelling in the R calf is greater on the R, likely related to the DVT. Still no redness of the R LE and no significant increase in warmth to touch. Skin Rashes: no rashes Assessment & Plan Assessment/Plan (1) Urinary tract infection: QUALIFIERS: Urinary tract infection type: acute pyelonephritis Q ualified Code(s): N10 - Acute pyelonephritis PLAN: causing septic shock (2) Debility: (3) Peripheral edema: (4) Hypocalcemia: (5) Acute DVT (deep venous thrombosis): PLAN: Right soleus vein. Also with superficial thrombophlebitis in the right small saphenous vein. Recent surgery and previous hospital was holding anticoagulation due to hematuria which has resolved. (6) Acute blood loss anemia: (7) Hypokalemia: (8) Elevated TSH: PLAN: Plan 1. Continue therapy 2. TSH is elevated at 5.58 but the free T4 is within normal limits. He has a history of Venecia's thyroiditis. He is currently taking levothyroxine 137 mcg daily. Will give one half tab on Friday twice monthly. Will need follow-up TSH in 4 to 6 weeks. 3. Lasix 20 mg x 1 today. 4. 40 mEq of potassium now since we are giving Lasix again. 5. DC triamterene/hydrochlorothiazide and start hydrochlorothiazide 12.5 mg in the AM. I suspect we will need to add a potassium supplement. He became hypokalemic despite being on a potassium sparing diuretic 6. Start Lovenox 40 mg subcu daily in light of DVT right lower extremity. I do not know if he has prostate CA or not......if he does it puts him at higher risk for propagation of the clot. Continue to monitor closely for hematuria. 7. Recheck a CBC with diff and a BMP on Friday. Charges/Coding Visit Charges Inpatient E&M: 88993 SNF Subs L1
[2023-11-07 10:00] VITALS: PULSE 80; RESP 16; O2SAT 96
[2023-11-07 10:08] LABS: Free T4 1.32 ng/dL (0.76-1.46)
[2023-11-07 13:39] LABS: Vitamin D,25 Hydroxy 81.3 ng/mL
[2023-11-07 13:43] VITALS: BP 128/50; PULSE 79; RESP 16; TEMP 37.1; O2SAT 93
[2023-11-07] MEDS: Furosemide 20 MG Tablet PO (19:34)
[2023-11-07] MEDS: Potassium Chloride Oral Tablet 20 MEQ 40 MEQ PO (19:34)
[2023-11-07] MEDS: Enoxaparin 40 MG/0.4 ML Syringe SC (20:34)
[2023-11-07 21:45] VITALS: TEMP 36.6
[2023-11-08] MEDS: Levothyroxine 137 MCG Tablet PO (06:01)
[2023-11-08 06:09] VITALS: TEMP 36.8
[2023-11-08] MEDS: Aspirin E.C. 81 MG Tablet PO (08:15)
[2023-11-08] MEDS: Ensure Plus High Protein 120 ML LIQUID PO ×3 (08:15→17:44)
[2023-11-08] MEDS: hydroCHLOROthiazide 12.5mg 12.5 MG PO (08:15)
[2023-11-08] MEDS: Enoxaparin 40 MG/0.4 ML Syringe SC (08:15)
[2023-11-08] MEDS: Cholecalciferol (VIT D3) 25 MCG TABLET (1,000 UNITS) PO (08:16)
[2023-11-08] MEDS: Ascorbic Acid 500 MG Tablet PO (08:16)
[2023-11-08] MEDS: Omega-3 Acid Ethyl Esters 1 GM Capsule PO (08:16)
[2023-11-08 09:18] VITALS: BP 140/62; PULSE 78; RESP 14; TEMP 37.1; O2SAT 94
[2023-11-08 14:00] VITALS: TEMP 37.2
[2023-11-08 16:07] VITALS: BMI 26.9
[2023-11-09 00:39] VITALS: TEMP 36.8
[2023-11-09] MEDS: Levothyroxine 137 MCG Tablet 68.5 MCG PO (05:08)
[2023-11-09 05:09] LABS: Absolute Lymphocyte Count 1.45 X10^3/uL (0.83-4.51); Absolute Neutrophil Count 5.5 X10^3/uL (2.0-7.7); Basophil# 0.05 X10^3/uL; Basophil% 0.6 % (0-1); Eosinophil# 0.23 X10^3/uL; Eosinophils% 2.8 % (0-5); Lymphocyte # 1.45 X10^3/ul (0.83-4.51); Lymphocyte % 17.9 % (19-41); Mean Corp Hgb Conc 32.3 g/dL (32-36); Mean Corpuscular Hgb 31.2 pg (27.0-32.0); Mean Corpuscular Volume 96.6 fL (80-94); Mean Platelet Vol. 9.7 fl (6.2-12.0); Monocyte# 0.66 X10^3/uL; Monocyte% 8.1 % (0-10); NRBC Flagged by Analyzer 0 % (0-5); Neutrophil # 5.52 X10^3/uL (2.7-7.7); Neutrophil % 68.1 % (47-70); Platelet Count 444 K/mm3 (150-450); RBC Distribution Width CV 14.6 % (11.6-14.6); RBC Distribution Width SD 50.4 fl (35.1-43.9); Red Blood Count 3.21 M/mm3 (4.6-6.2); White Blood Count 8.1 K/mm3 (4.4-11.0)
[2023-11-09] MEDS: Levothyroxine 137 MCG Tablet PO (05:09)
[2023-11-09 05:20] LABS: Anion Gap 7 (5-15); BUN 9 mg/dL (7-18); BUN/Creat Ratio 11.9 RATIO (10-20); Calcium,Total 8.3 mg/dL (8.5-10.1); Chloride 106 mmol/L (98-107); Creatinine, Serum 0.76 mg/dL (0.70-1.30); EST Glomerular Filtration Rate 105 mL/min (>60); Est Glom Filt Rate - Afr Amer 127 mL/min (>60); Estimated Creatinine Clearance 73.65 ml/min; Glucose 109 mg/dL (74-106); Potassium 3.9 mmol/L (3.5-5.1); Sodium Level 140 mmol/L (136-145)
[2023-11-09 08:00] VITALS: TEMP 37.2
[2023-11-09] MEDS: Enoxaparin 40 MG/0.4 ML Syringe SC (08:47)
[2023-11-09] MEDS: Aspirin E.C. 81 MG Tablet PO (08:48)
[2023-11-09] MEDS: hydroCHLOROthiazide 12.5mg 12.5 MG PO (08:48)
[2023-11-09] MEDS: Cholecalciferol (VIT D3) 25 MCG TABLET (1,000 UNITS) PO (08:48)
[2023-11-09] MEDS: Ascorbic Acid 500 MG Tablet PO (08:48)
[2023-11-09] MEDS: Ensure Plus High Protein 120 ML LIQUID PO ×3 (08:49→17:06)
[2023-11-09] MEDS: Omega-3 Acid Ethyl Esters 1 GM Capsule PO (08:51)
[2023-11-09 10:00] VITALS: BMI 26.3
[2023-11-09] MEDS: Potassium Chloride Oral Tablet 20 MEQ 40 MEQ PO (10:27)
[2023-11-09] MEDS: Furosemide 20 MG Tablet PO (10:27)
[2023-11-09 16:00] VITALS: BP 140/58; PULSE 85; RESP 14; TEMP 37.1; O2SAT 94
[2023-11-10] MEDS: Acetaminophen 500 MG Tablet 1000 MG PO ×2 (00:04→20:07)
[2023-11-10] MEDS: Levothyroxine 137 MCG Tablet PO (06:18)
[2023-11-10] MEDS: Ensure Plus High Protein 120 ML LIQUID PO ×3 (08:23→17:51)
[2023-11-10] MEDS: Aspirin E.C. 81 MG Tablet PO (08:23)
[2023-11-10] MEDS: Omega-3 Acid Ethyl Esters 1 GM Capsule PO (09:48)
[2023-11-10] MEDS: Ascorbic Acid 500 MG Tablet PO (09:48)
[2023-11-10] MEDS: Cholecalciferol (VIT D3) 25 MCG TABLET (1,000 UNITS) PO (09:49)
[2023-11-10] MEDS: Enoxaparin 40 MG/0.4 ML Syringe SC (09:49)
[2023-11-10 10:00] VITALS: PULSE 73; RESP 16; O2SAT 73; BMI 25.9
[2023-11-10] MEDS: hydroCHLOROthiazide 12.5mg 12.5 MG PO (10:01)
[2023-11-10 10:15] LABS: Anion Gap 8 (5-15); BUN 11 mg/dL (7-18); BUN/Creat Ratio 12.3 RATIO (10-20); Calcium,Total 8.3 mg/dL (8.5-10.1); Chloride 104 mmol/L (98-107); EST Glomerular Filtration Rate 87 mL/min (>60); Est Glom Filt Rate - Afr Amer 105 mL/min (>60); Estimated Creatinine Clearance 65.46 ml/min; Glucose 134 mg/dL (74-106); Potassium 3.8 mmol/L (3.5-5.1); Sodium Level 138 mmol/L (136-145)
--- NOTE | 2023-11-10 11:49 | PCM.PROGNOTE ---
Subjective Subjective Afebrile Vital signs stable Maintaining appropriate oxygen saturation on room air Fluid balance yesterday was -3070. Urine in the Dye bag is yellow and the urine in the tubing is pale yellow and clear. Has not been weighed today. Weight yesterday was 177 pounds and 11 ounces which is down from 197 and 12 ounces on 11/04/2023. Logan denies lightheadedness. He also denies chest pain, shortness of breath, palpitations, suprapubic pain, calf pain. Denies vertigo. His only complaint is some back stiffness and pain. Had been using Zanaflex 4 mg as needed at home. I discontinued this at admission due to potential for lightheadedness, confusion and falls. He is agreeable to try 2 mg. Objective Data Objective Data Vital Signs: Vital Signs Temp Pulse Resp BP Pulse Ox O2 Del Method 98.8 F 85 14 140/58 H 94 Room Air 11/09/23 16:00 11/09/23 16:00 11/09/23 16:00 11/09/23 16:00 11/09/23 16:00 11/09/23 16:00 Oxygen Delivery Method Room Air Weight: 177 lb 11.2 oz Body Mass Index (BMI) 26.3 Intake & Output: Intake and Output for Last 24 Hours 11/08/23 11/09/23 11/10/23 23:59 23:59 23:59 Intake Total 960 / 960 1100 / 1100 360 / 360 Output Total 6225 / 6225 4650 / 4650 2650 / 2650 Balance -5265 / -5265 -3550 / -3550 -2290 / -2290 Lab / Micro Data 11/09/23 04:27 11/10/23 09:50 Labs: Laboratory Results - last 24 hr 11/10/23 09:50: Sodium 138, Potassium 3.8, Chloride 104, Carbon Dioxide 26.0, Anion Gap 8, BUN 11, Creatinine 0.90, Estim Creat Clear Calc 65.46, Est GFR (MDRD) Af Amer 105, Est GFR (MDRD) Non-Af 87, BUN/Creatinine Ratio 12.3, Glucose 134 H, Calcium 8.3 L Physical Exam Const alert and no apparent distress General Appearance: cooperative Resp normal respiratory effort, normal air movement and clear to auscultation bilaterally Cardio regular rate, regular rhythm, no rub and no gallops Cardio Narrative: Occasional ectopics GI normal to inspection, nondistended, normoactive bowel sounds, soft to palpation and non-tender GI Narrative: The abdominal incisions are healing well with no dehiscence, no discharge and no lisa-incisional erythema. No guarding with palpation. Has pitting in both flanks. Extremity Extremity Narrative: Still with some pitting edema of the lower extremities but limited to the distal lower extremity now. The posterior thigh edema has resolved and the scrotum is much smaller. The right leg is a little more swollen than the left and he is known to have a clot in the right gastrocnemius. Skin General Skin Exam: no breakdown Rashes: no rashes Assessment & Plan Assessment/Plan (1) Debility: (2) Peripheral edema: (3) Acute DVT (deep venous thrombosis): (4) Chronic back pain: PLAN: Plan 1. Continue therapy 2. Lasix 20 mg daily x 2 doses starting today. 3. Potassium chloride 40 mEq now 4. Start potassium chloride 10 mEq daily 5. Continue hydrochlorothiazide 12.5 mg daily for M?ni?re's disease 6. Tolerating prophylactic Lovenox 40 mg daily with no hematuria. 7. Repeat venous ultrasound of the lower extremities tomorrow-checking for propagation of the known DVT in the right gastrocnemius vein. If there are additional clot is propagating will need to consider fully anticoagulating or if this is contraindicated due to the presence of the Dye catheter and recent gross hematuria will need to consult Dr. Beckham for IVC filter. 8. Restart Zanaflex 2 mg p.o. every 8 hours as needed back pain/muscle spasm. Charges/Coding Visit Charges Inpatient E&M: 80652 SNF Subs L1
[2023-11-10] MEDS: Furosemide 20 MG Tablet PO (12:18)
[2023-11-10] MEDS: Potassium Chloride Oral Tablet 20 MEQ 40 MEQ PO (12:22)
[2023-11-10 15:58] VITALS: BP 124/47; PULSE 79; RESP 16; TEMP 37.2; O2SAT 95
[2023-11-10] MEDS: tiZANidine HCl 2 MG Tablet PO (20:08)
[2023-11-11] MEDS: Levothyroxine 137 MCG Tablet PO (06:44)
[2023-11-11] MEDS: Ensure Plus High Protein 120 ML LIQUID PO ×3 (08:39→18:18)
[2023-11-11] MEDS: Potassium Chloride Oral Tablet 10 MEQ PO (08:41)
[2023-11-11] MEDS: Enoxaparin 40 MG/0.4 ML Syringe SC (08:41)
[2023-11-11] MEDS: Furosemide 20 MG Tablet PO (08:41)
[2023-11-11] MEDS: Aspirin E.C. 81 MG Tablet PO (08:41)
[2023-11-11] MEDS: hydroCHLOROthiazide 12.5mg 12.5 MG PO (08:41)
[2023-11-11] MEDS: Senna/Docusate Sodium 1 Tablet PO (08:42)
[2023-11-11] MEDS: Cholecalciferol (VIT D3) 25 MCG TABLET (1,000 UNITS) PO (08:42)
[2023-11-11] MEDS: Ascorbic Acid 500 MG Tablet PO (08:42)
[2023-11-11] MEDS: Omega-3 Acid Ethyl Esters 1 GM Capsule PO (08:43)
[2023-11-11 09:46] VITALS: BMI 25.6
--- NOTE | 2023-11-11 12:17 | NURSING ---
Offered covid vaccine, VIS provided. Patient refuses at this time.
[2023-11-11 14:14] VITALS: BP 124/57; PULSE 75; RESP 18; TEMP 36.7; O2SAT 96
--- NOTE | 2023-11-11 18:43 | CASEMGMT ---
Social Work SW met with patient at bedside to complete MDS. BIM () and PhQ-2 (1) Patient informed SW that he is currently having significant changes in his life. Due to medical concerns, patient and are downsizing home. Patient is contemplating giving up his hobby of creating and inventing. SW discussed ways to continue working on hobby and things that brings jericho. 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 Patient informed SW that he was not given hope for medical improvement initially, but the patient is having cassidy that things will improve. Patient is concerned about blood in his urine and blood clot. Patient requested to speak with Dr. Neves. SW consulted Dr. Neves to meet with patient at bedside. ARABELLA Teixeira
[2023-11-11 19:00] LABS: Bacteria 0 SEEN /hpf (None Seen); Mucous, Urine 0 SEEN /hpf (<or=2+); Squamous Epithelial Cells - UA 0 SEEN /hpf (0-5); White Blood Cells 0 SEEN /hpf (0-5)
[2023-11-11 19:03] LABS: Glucose, Dipstick Normal (Normal); Ketone-Dipstick Negative (Negative); Leukocyte Esterase-Dipstick Negative /ul (Negative); Nitrite-Dipstick Negative (Negative); Occult Blood-Urine 250 /ul (Negative); Protein-Dipstick 30 mg/dl (Negative); Specific Gravity, Urine 1.005 (1.002-1.030); Urine Bilirubin Dipstick Negative (Negative); Urine Clarity Sl. Cloudy (Clear); Urine Urobilinogen Normal (Normal); Urine pH 6.5 (5.0 - 8.0)
[2023-11-11 19:13] LABS: Color, Urine SEE COMMENT BELOW (Yellow)
[2023-11-11 19:14] LABS: Red Blood Cells-Urine 10-25 SEEN /hpf (0-5)
--- NOTE | 2023-11-11 19:15 | CASEMGMT ---
Social Work- TCU Assessment SW met with patient at bedside to complete initial intake assessment. SW introduced self and role. Patient verified demographics and emergency contact. Patient confirmed code status as DNR-CC, No Intubation. Patient informed SW that he does not have an advanced directive or living will. Patient informed SW that his , Moni is a ice maker and can create a Advanced Directive as needed. Patient declined resources for AD. Patient states , Moni is next of kin. Patient informed SW that he was independent to complete ADLS prior to admission, he would like to return home. SW educated patient of Medicare benefits and copay coverage. Patient had home health care in the past with nursing support, but does not remember provider. Patient stated that he would like home health care, if blood in urine persist. Patient had caldera in the past. Patient expressed concerns about where to obtain labs post discharge. SW discussed follow up with primary. Patient states that primary is through [facility]. Patient is unsure that his PCP will do labs. Patient states that he has appointment with urologist tomorrow to discuss concerns with blood in urine. SW will continue to follow to assist with discharge planning ARABELLA Teixeira
[2023-11-11 23:11] VITALS: BP 150/77; PULSE 88; RESP 16; TEMP 36.9; O2SAT 95
[2023-11-12 05:56] LABS: Absolute Lymphocyte Count 1.65 X10^3/uL (0.83-4.51); Absolute Neutrophil Count 4.4 X10^3/uL (2.0-7.7); Basophil# 0.08 X10^3/uL; Basophil% 1.1 % (0-1); Eosinophil# 0.15 X10^3/uL; Eosinophils% 2.1 % (0-5); Hemoglobin 10.6 g/dL (13.0-16.5); Lymphocyte # 1.65 X10^3/ul (0.83-4.51); Lymphocyte % 23.1 % (19-41); Mean Corp Hgb Conc 32.1 g/dL (32-36); Mean Corpuscular Hgb 31.2 pg (27.0-32.0); Mean Corpuscular Volume 97.1 fL (80-94); Mean Platelet Vol. 9.3 fl (6.2-12.0); Monocyte# 0.73 X10^3/uL; Monocyte% 10.2 % (0-10); NRBC Flagged by Analyzer 0 % (0-5); Neutrophil # 4.44 X10^3/uL (2.7-7.7); Neutrophil % 62.4 % (47-70); Platelet Count 513 K/mm3 (150-450); RBC Distribution Width CV 14.8 % (11.6-14.6); RBC Distribution Width SD 51.9 fl (35.1-43.9); White Blood Count 7.1 K/mm3 (4.4-11.0)
[2023-11-12 06:19] LABS: Anion Gap 7 (5-15); BUN 10 mg/dL (7-18); BUN/Creat Ratio 13.3 RATIO (10-20); Calcium,Total 8.5 mg/dL (8.5-10.1); Chloride 104 mmol/L (98-107); Creatinine, Serum 0.75 mg/dL (0.70-1.30); EST Glomerular Filtration Rate 106 mL/min (>60); Est Glom Filt Rate - Afr Amer 128 mL/min (>60); Estimated Creatinine Clearance 73.65 ml/min; Glucose 104 mg/dL (74-106); Potassium 3.7 mmol/L (3.5-5.1); Sodium Level 137 mmol/L (136-145)
[2023-11-12] MEDS: Levothyroxine 137 MCG Tablet PO (06:52)
--- NOTE | 2023-11-12 08:21 | NURSING ---
Resident requests this nurse assess urine. Small to moderate amount of blood noted along the wall of the tubing that clears when drained into drainage bag. One small blood clot noted approximately the size of a pea while this nurse was in the room. Resident verbalizes several concerns re: appointment w/ urologist today and hopes he is not readmitted to [facility]. Instructed hematuria will slowly resolve since medication has been dc'ed. Notes he was offered a medication to stop the bleeding per Dr. Neves yesterday and declined d/t potential concerns of side effects. Questions if he needs a blood transfusion. Informed resident his current hgb does not indicate that a transfusion is warranted. Emotional support and active listening provided throughout the interaction. Resident expresses appreciation. Will continue to monitor.
[2023-11-12] MEDS: hydroCHLOROthiazide 12.5mg 12.5 MG PO (08:46)
[2023-11-12] MEDS: Potassium Chloride Oral Tablet 10 MEQ PO (08:46)
[2023-11-12] MEDS: Omega-3 Acid Ethyl Esters 1 GM Capsule PO (08:48)
[2023-11-12] MEDS: Ensure Plus High Protein 120 ML LIQUID PO ×2 (08:48→17:12)
[2023-11-12] MEDS: Cholecalciferol (VIT D3) 25 MCG TABLET (1,000 UNITS) PO (08:50)
[2023-11-12] MEDS: Ascorbic Acid 500 MG Tablet PO (08:50)
[2023-11-12] MEDS: Tuberculin,Purif.prot.deriv. 50 TU/ML Vial 0.1 ML ID (10:47)
[2023-11-12 15:54] VITALS: BP 133/64; PULSE 84; RESP 16; TEMP 37; O2SAT 95
[2023-11-12] MEDS: Senna/Docusate Sodium 1 Tablet PO (21:38)
[2023-11-12] MEDS: Calcium Carbonate 500 MG Tablet PO (21:38)
[2023-11-12] MEDS: tiZANidine HCl 2 MG Tablet PO (21:39)
[2023-11-13] MEDS: Acetaminophen 500 MG Tablet 1000 MG PO ×2 (05:22→20:59)
[2023-11-13] MEDS: Levothyroxine 137 MCG Tablet PO (05:23)
[2023-11-13] MEDS: Ensure Plus High Protein 120 ML LIQUID PO ×3 (07:44→18:29)
[2023-11-13] MEDS: hydroCHLOROthiazide 12.5mg 12.5 MG PO (07:45)
[2023-11-13] MEDS: Potassium Chloride Oral Tablet 10 MEQ PO (07:45)
[2023-11-13] MEDS: Ascorbic Acid 500 MG Tablet PO (07:46)
[2023-11-13] MEDS: Cholecalciferol (VIT D3) 25 MCG TABLET (1,000 UNITS) PO (07:46)
[2023-11-13] MEDS: Senna/Docusate Sodium 1 Tablet PO ×2 (07:46→21:00)
[2023-11-13 08:51] VITALS: BMI 24.9
--- NOTE | 2023-11-13 11:03 | CASEMGMT ---
Addendum entered by Margarito Fregoso 11/13/23 14:58: Patient decided that he would like to have [facility] at home for caldera support. Patient would like to stay within the [facility]. SW submitted referral to [facility]. SW submitted a referral to [facility]. [facility] intake, Saira informed SW that [facility] is unable to accept due to patient residing out of servicing area. Patient provided printed home health care provider list with preferred geographic area, medical needs and within insurance network via [employer] Guide. SW awaiting patient choice. Discharge: Home with home health SN 11/15/2023 Addendum entered by Margarito Fregoso 11/13/23 12:29: SW completed Notice of Medicare Non-Coverage effective for current [facility] services for date 11/14/2023; anticipated discharge 11/15/2023 SW met with patient to provide Medicare Notice of Non-Coverage. Patient and provided verbal understanding of NOMNC and provided signature on behalf of the patient. SW provided a copy of NOMNC. Patient and was agreeable to discharge on 11/15/2023 Original Note: Social Work- Care Plan IDT met with patient and at bedside to complete care planning. Discussed patient progress with therapy (PT/OT) and activities. Patient is independent for activities. Patient has been independent ad naresh without device. Patient is ambulating independently. Patient has been going up a flight of steps with therapy. Patient is independent for ADLS. Patient balance has improved. Patient will require education on caldera. Patient's inquired about therapy in home. Therapy is recommending outpatient therapy and home exercises. SW educated patient on Medicare coverage and benefits. Patient is requesting to discharge home. Patient is expressing concerns about caldera catheter and pulling the catheter. Patient informed SW that he has had a concern for retention after caldera is discontinued. Patient inquired about returning to [facility], if needed to obtain caldera. Patient informed SW that he does not want to go to [facility]. SW informed patient that he can return to [facility] ED, if needed. Patient informed staff that he would like to discharge over weekend. SW and family coordinate discharge for 11/15/2023. Patient informed team that he does not want outpatient therapy or home health care. Patient will discharge home with training for caldera care. Discharge plan: Home ARABELLA Teixeira
--- NOTE | 2023-11-13 12:19 | NURSING ---
Addendum entered by Smita Cassidy 11/13/23 18:48: Print out for urinary catheter leg bag care provided to patient. Original Note: Patient to D/C home with Dye catheter on 11/14. Catheter care instructions instructions gone over, along with how to clean catheter and what to look for with urine. Instructed to call urologist or back to TCU with any questions or concerns and number to nurses station on TCU provided. Also provided patient with leg bag and demonstrated how to hook bag to leg and empty it and how to change out bags while keeping ends clean. Patient request I not change out bags at this time but that he would maybe have someone show him before he leaves.
--- NOTE | 2023-11-13 12:34 | NURSING ---
Ware Carrier Note; Activity Asset: Sabrina Ford is independent in his choice of daily activities. He is up adlib and walks the halls independently. Family will visit daily and he watches tv. Staff will remind him of weekly activities and respect his right to say no.
[2023-11-13 15:20] VITALS: BP 140/53; PULSE 84; RESP 14; TEMP 36.9; O2SAT 94
--- NOTE | 2023-11-13 16:27 | NURSING ---
Hematuria noted again this afternoon after being clear this AM. Patient feels it occurred after therapy and does not want to participate in therapy tomorrow. Patient had refused aspirin and lovaza this AM d/t being worried hematuria would return. Dr. Neves made aware.
--- NOTE | 2023-11-13 18:54 | NURSING ---
Dr. Neves D/C TIFFANIE and Ruth. Patient requesting he see Dr. Rojo rather than his current urologist. Encouraged to make PCP aware and get a referral and see if he is able to change providers. Patient now requesting to see PA with PCP office so he can get an earlier appt after d/c. Gate Attendant made aware.
--- NOTE | 2023-11-13 19:26 | PCM.DC.SUM ---
Providers Date of Admission: 11/04/23 Primary Care Physician: Dr. Álvaro Purcell, Reason For Visit: SEPSIS Diagnosis Discharge Diagnosis (1) Debility: Status: Acute Code(s): R53.81 - Other malaise (2) Peripheral edema: Status: Acute Code(s): R60.0 - Localized edema (3) Acute DVT (deep venous thrombosis): Status: Acute Code(s): I82.409 - Acute embolism and thrombosis of unspecified deep veins of unspecified lower extremity (4) Chronic back pain: Status: Chronic Code(s): M54.9 - Dorsalgia, unspecified; G89.29 - Other chronic pain Plan 78 year old male with below past medical history significant for recent abdominal prostatectomy hospitalized for septic shock 2/2 UTI, complicated by hematuria, admitted to TCU with debility, here for rehabilitation, strengthening, prior to discharge home with . Debility - PT/OT. Pain - [place] 5/325mg 1 tablet q6 prn pain (1-10). Bowel - senna/colace 1 tablet bid, Dulcolax 10mg pr daily prn. Adult immunization - Administer pneumonia vaccine, covid vaccine, flu vaccine as appropriated. DVT prophylaxis - Hold, recent hematuria. Shortness of breath - Albuterol 2 puffs q6 prn. Vitamin C deficiency - Vitamin C 500mg daily. Coronary artery disease - Aspirin 81mg daily. UTI - Cefdinir 300mg q12 thru 11/07/2023. Vitamin D deficiency - D3 25mcg daily. 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 Nutrition - Ensure Plus 120ml tidcm. Fungal infection - Fluconazole 400mg qweek. Tinea Corporis - Ketoconazole cream topical daily prn. Hypothyroidism - Levothyroxine 137mcg daily. Allergic rhinitis - Loratadine 10mg daily. Hyperlipidemia - [place] 3 1 grm daily. BPH - Tamsulosin 0.4mg daily. Muscle spasm - Tizanidine 4mg q6 prn. Skin irritation - Triamcinolone topical bid prn. Leg cramps - Vitamin B complex 1 capsule daily. Medications at Discharge Home Medications levothyroxine 137 mcg tablet 137 mcg PO DAILY thyroid 10/08/17 fexofenadine 180 mg tablet (Quynh Allergy) 180 mg PO DAILY PRN ALLERGIES 10/30/18 cholecalciferol (vitamin D3) 100 mcg (4,000 unit) capsule 1,000 unit PO DAILY supplement 10/21/22 ascorbic acid (vitamin C) 500 mg capsule,extended release (Vitamin C) 500 mg PO DAILY supplement 12/02/22 tizanidine 2 mg tablet 4 mg PO Q6H PRN muscle spasm 09/29/23 acetaminophen 500 mg tablet 1,000 mg (2 x 500 mg) PO Q6H PRN PRN Pain Score 1-10 #0 tabs 11/13/23 calcium carbonate 500 mg (2.5 x 200 mg calcium (500 mg)) PO Q4H PRN PRN Indigestion #0 tabs 11/13/23 hydrochlorothiazide 12.5 mg capsule 12.5 mg PO DAILY #0 caps 11/13/23 tizanidine 2 mg tablet 2 mg PO Q8H PRN PRN Back pain/muscle spasm #0 tabs 11/13/23 Hospital Course Operations None Procedures None Summary of Care Provided Minutes Spent on Discharge: 35 Hospital Course: 78 year old male with below past medical history significant for recent abdominal prostatectomy hospitalized for septic shock 2/2 UTI, complicated by hematuria, admitted to TCU with debility, here for rehabilitation, strengthening, prior to discharge home with . 11/06/2023 Doppler ultrasound showed right lower extremity DVT, right lower extremity superficial thrombophlebitis. Lovenox was started. Resident developed notable hematuria in caldera bag. Lovenox was stopped. 11/11/2023 Repeat Doppler ultrasound showed right lower extremity DVT, right lower extremity superficial thrombophlebitis. Resident offered IV tranexamic acid for hematuria, but he declined citing fear of further blood clots in the bladder. He is also requesting to see Dr. Rojo for urologic follow up after leaving TCU. Discharge home with 11/15/2023, [facility] SN. Consider treatment of right lower extremity DVT once hematuria clears. Physical Exam Const alert General Appearance: cooperative HEENT normocephalic Eyes PERRL and EOMs intact bilaterally Neck supple, no JVD and no carotid bruits Resp normal respiratory effort, normal air movement and clear to auscultation bilaterally Cardio regular rate and regular rhythm GI normal to inspection, nondistended, normoactive bowel sounds, non-tender and non-distended Bladder / Kidney Exam: catheter in place urethral Extremity normal capillary refill General Extremity: Negative for edema Skin no rashes or lesions noted General Skin Exam: no breakdown Psych affect normal Appearance: appropriate Weight / BMI Weight Weight: 76.521 kg Body Mass Index (BMI) 24.9 ABG / Lab / Microbiology Data 11/12/23 05:12 11/12/23 05:12 Microbiology: Microbiology 11/11/23 18:40 Urine Catheter - Catheter Urine Culture - Preliminary Gram Positive Cocci D/C Instructions Discharge Diet: No restrictions Discharge Activity: Return to Normal Activity, May Shower and Use Walker Weight Bearing Status: Weight bearing as tolerated Call your doctor if you observe: Fever of 101 or Higher, Inability to urinate, Inability to have a bowel movement, Shortness of breath, Dizziness, Fainting spells, Swelling in the ankles, Chest pain and Uncontrolled pain Additional Instructions: Discharge home with 11/15/2023, [facility] SN. Consider treatment of right lower extremity DVT once hematuria clears. Please Follow Up With: Channing Hines MD When: As scheduled. Meaningful Use Info Meaningful Use Meaningful Use Diagnoses (Choose all that apply): None applicable Ischemic Stroke Statin Dosing Therapy Reference: STATIN DOSE THERAPY REFERENCE: * Patients > 75 years receive moderate or high dose statin therapy. * Patients 75 years or YOUNGER should receive HIGH intensity statin dose unless contraindicated. You will be required to document reason for non-treatment if statin daily dose does not meet guidelines. HIGH DOSE STATIN THERAPY DAILY Atorvastatin > than or = to 40 mg Rosuvastatin > than or = to 20 mg Amlodipine + Atorvastatin > than or = to 2.5/40 mg Ezetimibe + Simvastatin 10/80 mg Simvastatin 80mg Discharge Plan Admission Admit Date/Time: 11/04/23 15:41 Primary Reason for Your Visit: Debility. Attending Provider: Raman Neves Chi Primary Care Provider: Álvaro Purcell Instructions Additional Instructions / Restrictions: Discharge home with 11/15/2023, [facility] SN. Consider treatment of right lower extremity DVT once hematuria clears. Discharge Orders/Prescriptions Prescriptions: New acetaminophen 500 mg Tablet 1,000 mg PO Q6H PRN PRN (Reason: Pain Score 1-10) Qty: 0 0RF calcium carbonate 200 mg calcium (500 mg) Tablet,Chewable 500 mg PO Q4H PRN PRN (Reason: Indigestion) Qty: 0 0RF tizanidine 2 mg Tablet 2 mg PO Q8H PRN PRN (Reason: Back pain/muscle spasm) Qty: 0 0RF hydrochlorothiazide 12.5 mg Capsule 12.5 mg PO DAILY Qty: 0 0RF Continued fexofenadine [Quynh Allergy] 180 mg tablet 180 mg PO DAILY PRN (Reason: ALLERGIES) cholecalciferol (vitamin D3) 100 mcg (4,000 unit) capsule 1,000 unit PO DAILY levothyroxine 137 MCG tablet 137 mcg PO DAILY ascorbic acid (vitamin C) [Vitamin C] 500 mg Capsule, Extended Release 500 mg PO DAILY Discontinued aspirin [Adult Low Dose Aspirin] 81 mg tablet,delayed release (DR/EC) 81 mg PO QDAY Complex B-100 tablet extended release 1 tab PO DAILY omega-3 fatty acids [Fish Oil Concentrate] 1,000 mg capsule 1,000 mg PO DAILY cztavrnr-fnz-zsdiw-hyaluron ac [id number] mg tablet 1 tab PO DAILY tamsulosin [Flomax] 0.4 mg capsule 0.4 mg PO DAILY Qty: 30 0RF vitamin B6-vitamin E-magnesium Tablet 1 tab PO DAILY diazepam 2 mg tablet 2 mg PO QHS PRN fluconazole 200 mg tablet 400 mg PO FR hydrocodone-acetaminophen 5-325 mg tablet 1 tab PO Q6H Patient Comments: TAKE 1 TO 2 TABLETS BY MOUTH EVERY 6 HOURS NEEDED FOR PAIN methylprednisolone 4 mg tablets,dose pack 4 mg PO DAILY PRN Patient Comments: TAKE BY MOUTH DIRECTED ON INSIDE OF PACKAGE WITH FOOD triamcinolone acetonide 0.1 % cream TOPICAL BID PRN (Reason: rash/itching) Patient Comments: APPLY CREAM SPARINGLY TO AFFECTED AREA TWICE DAILY NEEDED (SKIN LESION SPOT ON LEG) FOR RASH/ITCHING No Action tizanidine 2 mg tablet 4 mg PO Q6H PRN (Reason: muscle spasm) Patient Comments: TAKE 1 TABLET BY MOUTH EVERY 6 HOURS NEEDED FOR LOW BACK PAIN Referrals / Follow Up: Álvaro Purcell DO [Primary Care Provider] - 12/08/23 3:20 pm (1st appt available ) Disposition Disposition (needs filled in before D/C Order can be placed): Home Health Service
[2023-11-13 20:45] VITALS: PULSE 75; RESP 16; O2SAT 97
[2023-11-13] MEDS: tiZANidine HCl 2 MG Tablet PO (21:00)
[2023-11-14] MEDS: Levothyroxine 137 MCG Tablet PO (06:14)
[2023-11-14] MEDS: Ensure Plus High Protein 120 ML LIQUID PO ×3 (08:59→17:33)
[2023-11-14] MEDS: Fluconazole 100 MG Tablet 400 MG PO (09:00)
[2023-11-14] MEDS: Potassium Chloride Oral Tablet 10 MEQ PO (09:00)
[2023-11-14] MEDS: hydroCHLOROthiazide 12.5mg 12.5 MG PO (09:01)
[2023-11-14] MEDS: Cholecalciferol (VIT D3) 25 MCG TABLET (1,000 UNITS) PO (09:02)
[2023-11-14] MEDS: Ascorbic Acid 500 MG Tablet PO (09:02)
[2023-11-14 10:00] VITALS: BMI 25.0
[2023-11-14 10:45] VITALS: PULSE 73; RESP 16; O2SAT 97
--- NOTE | 2023-11-14 11:29 | CASEMGMT ---
Social Work SW received notice from patient's informing SW that the patient has provided choice of [facility] and [facility] for services. SW submitted referral via [facility]. DARY will continue to follow to support discharge Home health SN ARABELLA Teixeira
[2023-11-14 13:01] VITALS: BP 135/55; PULSE 73; RESP 16; TEMP 37.2; O2SAT 97
--- NOTE | 2023-11-14 14:11 | CASEMGMT ---
Social Work- Discharge summary Patiet has been accepted by [facility] for home health care services for Shelter support. SW notified patient. Patient requested to discharge tomorrow 11/15/23 at 1030A. SW notified nursing. Patient completed discharge MDS assessment. BIM () and PhQ-2 (1) Patient's to provide transportation to home. Discharge: Home with Home Health Care Services by provider: [facility] ? ARABELLA Teixeira
--- NOTE | 2023-11-14 18:11 | NURSING ---
Reviewed medications with patient for discharge. He verbalized understanding. Talked with him about using leg bag during the day, until he is able to have catheter removed. Answered any questions he had. He was appreciative of care and teaching. Encouraged him to ask any questions and to call if he had any questions after discharge this morning.
--- NOTE | 2023-11-14 18:15 | NURSING ---
Reviewed medications with patient, he verbalized understanding. Talked about using leg bag during the day and reviewed application. Answered any questions he had. He was very appreciative of care. Encouraged him to call with any questions even after discharge tomorrow.
[2023-11-14] MEDS: Acetaminophen 500 MG Tablet 1000 MG PO (20:55)
[2023-11-14] MEDS: Senna/Docusate Sodium 1 Tablet PO (20:56)
[2023-11-14] MEDS: tiZANidine HCl 2 MG Tablet PO (20:56)
[2023-11-14] MEDS: Calcium Carbonate 500 MG Tablet PO (20:59)
[2023-11-15] MEDS: Levothyroxine 137 MCG Tablet PO (06:38)
[2023-11-15 06:56] VITALS: PULSE 78; RESP 18; O2SAT 98
[2023-11-15] MEDS: Ensure Plus High Protein 120 ML LIQUID PO (08:47)
[2023-11-15] MEDS: Potassium Chloride Oral Tablet 10 MEQ PO (08:47)
[2023-11-15] MEDS: hydroCHLOROthiazide 12.5mg 12.5 MG PO (10:19)
[2023-11-15] MEDS: Ascorbic Acid 500 MG Tablet PO (10:20)
[2023-11-15] MEDS: Cholecalciferol (VIT D3) 25 MCG TABLET (1,000 UNITS) PO (10:20)
--- NOTE | 2023-11-17 09:46 | MDS.RN ---
Information for the MDS was obtained from review of the clinical record, interview of resident, staff, and direct observation of resident?s care.
== END 2023-11-15 10:38 | disposition home health service (06) | DRG 699 ==
PROVIDERS: Internal Medicine; Admitting Provider Family Medicine Geriatric Medicine; PCP Student in an Organized Health Care Education/Training Program; Referring Provider Family Medicine Geriatric Medicine; Visit Provider Family Medicine Geriatric Medicine
DX: T83.511A Infection and inflammatory reaction due to indwelling urethral catheter, initial encounter (principal); D62 Acute posthemorrhagic anemia; I80.01 Phlebitis and thrombophlebitis of superficial vessels of right lower extremity; E06.3 Autoimmune thyroiditis; I25.10 Atherosclerotic heart disease of native coronary artery without angina pectoris; B35.4 Tinea corporis; I82.461 Acute embolism and thrombosis of right calf muscular vein; I10 Essential (primary) hypertension; E55.9 Vitamin D deficiency, unspecified; J30.9 Allergic rhinitis, unspecified; F41.9 Anxiety disorder, unspecified; E78.00 Pure hypercholesterolemia, unspecified; M62.838 Other muscle spasm; K21.9 Gastro-esophageal reflux disease without esophagitis; E87.6 Hypokalemia; N39.0 Urinary tract infection, site not specified; N40.0 Benign prostatic hyperplasia without lower urinary tract symptoms; Z87.891 Personal history of nicotine dependence; Z90.79 Acquired absence of other genital organ(s); Z79.82 Long term (current) use of aspirin; Z79.899 Other long term (current) drug therapy; G89.29 Other chronic pain; Y73.1 Therapeutic (nonsurgical) and rehabilitative gastroenterology and urology devices associated with adverse incidents; H81.09 Meniere's disease, unspecified ear
CPT/HCPCS: 36415; 80048; 80053; 81001; 82306; 83735; 84100; 84439; 84443; 85025; 87077; 87086; 87088; 87186; 93970; 93971; 97110; 97116; 97162; 97166; 97530; 97535; 97802

== ENCOUNTER → 2023-11-06 | Outpatient (CLI) | payer MEDICARE, OTHER, SELFPAY ==
--- NOTE | 2023-11-06 | VDLE_ITS ---
Reason For Study: RLE Pain RIGHT LEFT GSV is normal. CFV is compressible, spontaneous, phasic, CFV is compressible, spontaneous, phasic, competent, and demonstrates normal competent and demonstrates normal augmentation. augmentation. FV is compressible, spontaneous, phasic, competent and demonstrates normal augmentation. POP V is compressible, spontaneous, phasic, competent and demonstrates normal augmentation. T/P Trunk is compressible. PTV is compressible. RT PerV is compressible. Acute deep vein thrombosis is noted in the Gastrocnemius V. It is dilated and NONCOMPRESSIBLE. Acute superficial vein thrombosis is noted in the Rt SSV Prox to mid calf. It is dilated and NONCOMPRESSIBLE. Procedure This is a venous duplex using B-mode, color flow and spectral Doppler. Exam performed portable in patient room. The exam was diagnostic. A preliminary report was called and/or faxed to [facility]. VL/Venous Duplex US, Unilateral Interpretation Summary Acute deep vein thrombosis is noted in the right gastrocnemius vein. Acute superficial vein thrombosis noted in the right small saphenous vein Ordering Physician: Raman Neves Chi Referring Physician: Álvaro Purcell Performed By: Melecio Sommers RVT
== END | disposition home or self-care (01) ==
LOC: CVS 08:43
PROVIDERS: PCP Student in an Organized Health Care Education/Training Program; Referring Provider Family Medicine Geriatric Medicine; Visit Provider Family Medicine Geriatric Medicine
DX: M79.661 Pain in right lower leg (principal)
CPT/HCPCS: 93971

== ENCOUNTER → 2023-11-11 | Outpatient (CLI) | payer MEDICARE, OTHER, SELFPAY ==
--- NOTE | 2023-11-11 08:52 | VDLE_ITS ---
Reason For Study: HX RLE DVT RIGHT LEFT GSV is normal. GSV Harvested for CABG surgery. CFV is compressible, spontaneous, phasic, CFV is compressible, spontaneous, phasic, competent and demonstrates normal competent, and demonstrates normal augmentation. augmentation. FV is compressible, spontaneous, phasic, FV is compressible, spontaneous, phasic, competent and demonstrates normal competent and demonstrates normal augmentation. augmentation. POP V is compressible, spontaneous and phasic POP V is compressible, spontaneous, phasic, competent and demonstrates normal T/P Trunk is compressible. augmentation. PTV is compressible. T/P Trunk is compressible. RT PerV is compressible. PTV is compressible. Acute deep vein thrombosis is noted in the LT PerV is compressible. Gastrocnemius V. It is dilated and NONCOMPRESSIBLE. Acute superficial vein thrombosis is noted in the Rt SSV Prox to mid calf. It is dilated and NONCOMPRESSIBLE. Procedure This is a venous duplex using B-mode, color flow and spectral Doppler. Exam performed portable in patient room. The exam was diagnostic. A preliminary report was called and/or faxed to TCU RN. VL/Venous Duplex US - [place] Extrem Interpretation Summary Acute deep vein thrombosis is noted in the right gastrocnemius vein. Acute superficial vein thrombosis is noted in the right small saphenous vein. Deep veins of the left lower extremity are patent and compressible segmentally. There is no evidence of left lower extremity deep vein thrombosis. The right great saphenous vein ap pears patent and compressible segmentally Ordering Physician: Tala John Referring Physician: Álvaro Purcell Performed By: Melecio Sommers, RVBernardo
== END | disposition home or self-care (01) ==
PROVIDERS: PCP Student in an Organized Health Care Education/Training Program; Referring Provider Internal Medicine; Visit Provider Internal Medicine
DX: R60.0 Localized edema (principal)
CPT/HCPCS: 93970